=== PATIENT | female | born 1945 | race African-American/Black ===

== ENCOUNTER 2021-02-22 11:00 | Outpatient (REF) | payer MEDICARE, MEDICAID, SELFPAY ==
--- NOTE | ~2021-02-22 | MR_ITS ---
MR LUMBAR SPINE WITHOUT IV CONTRAST CLINICAL INFORMATION: Low back pain. COMPARISON: Lumbar spine radiographs 07/21/2019. TECHNIQUE: MRI of the lumbar spine was obtained using routine sequences without contrast. 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 Discrete 1 degenerative anterolisthesis of L3 on L4. Vertebral body heights are maintained. Severe disc volume loss at L5-S1. Disc desiccation at all lumbar levels. Mild Modic type I endplate signal changes at L3-L4. No additional bone marrow edema. No acute fractures. The conus terminates at the L1-L2 level. Fatty filum terminale. No significant extraspinal soft tissue findings. The L1-L2 and the L2-L3 disc contours are normal. There is no central canal stenosis and there is no foraminal stenosis at these levels. L3-L4: Slight grade 1 anterolisthesis. Severe bilateral facet arthropathy and ligamentum flavum thickening. Bilateral facet joint effusions. Mild central canal stenosis and mild bilateral foraminal encroachment. L4-L5: Diffuse annular disc bulge and mild to moderate bilateral facet arthropathy. No central canal stenosis. No significant foraminal stenosis. 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 - At L3-L4, slight grade 1 degenerative anterolisthesis and multifactorial degenerative changes result in mild central canal stenosis and mild bilateral foraminal encroachment. Bilateral facet joint effusions at this level.
== END 2021-02-22 11:01 | disposition home or self-care (01) ==
LOC: HO.MRI 11:00
PROVIDERS: PCP Internal Medicine; Visit Provider Internal Medicine
DX: M54.5 Low back pain (principal)
CPT/HCPCS: 72148

== ENCOUNTER 2021-11-06 13:26 | Outpatient (REF) | payer OTHER, SELFPAY ==
--- NOTE | ~2021-11-06 | MM_ITS ---
EXAMINATION: MM SCREENING DIGITAL BREAST TOMOSYNTHESIS, BILATERAL CLINICAL INFORMATION: Screening. Asymptomatic. The lifetime risk of breast cancer based on the Tyrer-Cuzick Model is 2%. COMPARISON: Mammography: 12/25/2018, 06/13/2017, 04/24/2016 TECHNIQUE: Digital breast tomosynthesis is performed in both the craniocaudal and mediolateral oblique views along with computer-aided detection (CAD). Synthesized 2D images are generated from the tomosynthesis. Additional left MLO view is provided. FINDINGS: There are scattered areas of fibroglandular density (ACR BI-RADS breast composition Category b). There are no significant masses, abnormal calcifications, or other abnormalities. Parenchymal pattern is similar to prior studies. There is no developing density or architectural abnormality. There are scattered vascular and some isolated punctate calcifications. The axilla and skin contours are unremarkable. MM/MM tomosynthesis screening BI IMPRESSION: No mammographic evidence of malignancy. ASSESSMENT: BI-RADS 1: Negative RECOMMENDATION: Routine annual mammography screening. This patient's information was entered into a reminder system with a target due date for their next mammogram.
== END 2021-11-06 13:27 | disposition home or self-care (01) ==
LOC: HO.MAMMO 13:26
PROVIDERS: PCP Internal Medicine; Visit Provider Internal Medicine
DX: Z12.31 Encounter for screening mammogram for malignant neoplasm of breast (principal)
CPT/HCPCS: 77063; 77067

== ENCOUNTER 2022-01-23 09:44 | Outpatient (REF) | payer OTHER, SELFPAY ==
--- NOTE | ~2022-01-23 | MM_ITS ---
EXAMINATION: BONE DENSITOMETRY CLINICAL INDICATION: Asymptomatic menopausal state. COMPARISON: Previous BD dated 12/22/2018 and baseline BD dated 05/10/2010. TECHNIQUE: Using a [employer] DXA System (software version: 13.1) manufactured by [employer], dual-energy x-ray absorptiometry was performed of the lumbar spine and left hip. The images are of good technical quality. Summary results are attached. FINDINGS: AP SPINE L1-L4: Current: BMD 0.973 g/cm2, Z-score -0.4, T-score -1.7, osteopenia, 2.1% increase from previous, 3.8% increase from baseline (<5% change is not significant). Prior: BMD 0.953 g/cm2. Baseline: BMD 0.937 g/cm2. LEFT FEMUR, NECK: Current: BMD 0.664 g/cm2, Z-score -1.1, T-score -2.7, osteoporosis. Prior: BMD 0.735 g/cm2. Baseline: BMD 0.779 g/cm2. LEFT FEMUR, TOTAL: Current: BMD 0.741 g/cm2, Z-score -0.7, T-score -2.1, osteopenia, 7.3% decrease from previous, 10.6% decrease from baseline (<5% change is not significant). Prior: BMD 0.799 g/cm2. Baseline: BMD 0.829 g/cm2. IDENTIFIED RISK FACTORS: Dementia, low calcium intake. Early menopause, secondary osteoporosis, hysterectomy, left oophorectomy. HISTORY OF FRACTURE: None listed. MEDICATIONS: Calcium supplements or multivitamin, vitamin D. MM/XR DEXA axial skeleton IMPRESSION: 1. DIAGNOSIS: Osteoporosis based on the lowest T-score value of -2.7 in the femoral neck applying World Health Organization criteria. 2. 10-YEAR FRACTURE RISK PREDICTION, FRAX: Major osteoporotic fracture (clinical spine, forearm, hip or shoulder) 9.6%. Hip fracture 3.0%. 3. Treatment Recommendations: NOF guidelines recommend consideration for treatment in postmenopausal women and men age 50 and older presenting with the following: -A hip or vertebral (clinical or morphometric) fracture. -T-score less than or equal to -2.5 at the femoral neck or spine after appropriate evaluation to exclude secondary causes. -Low bone mass at the hip or spine and a 10-year fracture probability by FRAX of greater than or equal to 3% for hip fracture or greater than or equal to 20% for major osteoporotic fracture based on the [place] adapted WHO algorithm. 4. Other Recommendations: All treatment decisions require clinical judgment and consideration of individual patient factors, including patient preferences, comorbidities, previous drug use, risk factors not captured in the FRAX model (e.g. frailty, falls, vitamin D deficiency, increased bone turnover, interval significant decline in bone density) and possible under or overestimation of fracture risk by FRAX. Additional medical evaluation for secondary cause of low bone mineral density may be appropriate. FUTURE SCAN RECOMMENDATION: People with diagnosed cases of osteoporosis or at high risk for fracture should have regular bone mineral density tests. For patients eligible for Medicare, routine testing is allowed once every 2 years. The testing frequency can be increased to one year for patients who have rapidly progressing disease, those who are receiving or discontinuing medical therapy to restore bone mass, or have additional risk factors.
== END 2022-01-23 09:45 | disposition home or self-care (01) ==
LOC: HO.MAMMO 09:44
PROVIDERS: Visit Provider Internal Medicine
DX: Z78.0 Asymptomatic menopausal state (principal); F03.90 Unspecified dementia, unspecified severity, without behavioral disturbance, psychotic disturbance, mood disturbance, and anxiety; E83.51 Hypocalcemia; Z90.710 Acquired absence of both cervix and uterus; Z90.721 Acquired absence of ovaries, unilateral
CPT/HCPCS: 77080

== ENCOUNTER 2023-04-07 17:02 | Emergency (ER) | payer OTHER, SELFPAY ==
--- NOTE | ~2023-04-07 | XR_ITS ---
EXAMINATION: XR RIBS, BILATERAL CLINICAL INFORMATION: Bilateral rib pain, status post fall COMPARISON: None available. TECHNIQUE: 3 views of the bilateral ribs were obtained. FINDINGS: Lungs are clear. No consolidation, pneumothorax, or pleural effusion. The cardiomediastinal silhouette and pulmonary vasculature are normal. Osseous structures are unremarkable. Multiple views of bilateral ribs reveal no visible fracture. There is mild dextroscoliosis of dorsal spine. XR/XR ribs BI min 4V w CXR1V IMPRESSION: 1. Unremarkable chest exam. 2. No visible rib fractures seen. There is mild dextroscoliosis of dorsal spine.
--- NOTE | ~2023-04-07 | CT_ITS ---
EXAMINATION: CT HEAD WITHOUT CONTRAST CLINICAL INFORMATION: Dizziness. Mechanical fall today. COMPARISON: None. TECHNIQUE: Contiguous axial imaging was performed from the skull base to vertex without intravenous administration of contrast. This CT examination was performed using dose optimization techniques as appropriate, variously including the following: *Automated exposure control *Adjustment of mA and/or kV according to patient size (this includes techniques or standardized protocols for targeted exams where dose is matched to indication/reason for exam; i.e. extremities or head) *Use of iterative reconstruction technique DLP: 641 mGy-cm. FINDINGS: There is no intracranial hemorrhage, large infarction, or mass lesion. There is no extra-axial collection. The ventricles are normal in size and configuration without evidence of hydrocephalus. The visualized paranasal sinuses and mastoid air cells are clear. CT/CT head/brain wo IV con IMPRESSION: No acute intracranial abnormality.
[2023-04-07 17:32] VITALS: BP 168/75; PULSE 104; RESP 18; TEMP 36.1; O2SAT 97; BMI 34.5
--- NOTE | 2023-04-07 17:32 | ED.GENADULT ---
HPI - General Adult General Chief complaint: Fall Stated complaint: Fall/Rib pain Time Seen by Provider: 04/07/23 21:54 Source: patient Mode of arrival: ambulatory Limitations: no limitations History of Present Illness HPI narrative: 77-year-old female presents with bilateral lower chest wall pain. Symptoms started earlier today. Patient is walking in the hallway to get her mail when she fell. Was a mechanical fall. She did not hit her head or lose consciousness. There is no prodrome such as chest pain, palpitations, lightheadedness, dizziness. She denied any focal neurologic deficits. Currently her pain level is moderate. Is worse with respiration and movement. The pain does not radiate. She denies any shortness breath, cough or mucus production. The pain does not radiate. There has been no prior treatment. Related Data Allergies Allergy/AdvReac Type Severity Reaction Status Date / Time aspirin [ASA] Allergy Severe SWELLING Verified 04/07/23 17:36 Review of Systems Review of Systems: CONSTITUTIONAL: Denies weight loss, fever and chills. HEENT: Denies changes in vision and hearing. RESPIRATORY: Denies SOB and cough. CV: Denies palpitations + CP. GI: Denies abdominal pain, nausea, vomiting and diarrhea. : Denies dysuria and urinary frequency. MSK: Denies myalgia and joint pain. SKIN: Denies rash and pruritus. NEUROLOGICAL: Denies headache and syncope. PSYCHIATRIC: Denies recent changes in mood. Denies anxiety and depression. All other ROS are negative unless in HPI [facility] Social History Social History Advance Directives: No Advance Directives Information Provided: No Physical Exam ED Vital Signs: Vital Signs - 24 hr 04/07/23 17:32 Temperature 97.0 F Pulse Rate 104 H Respiratory Rate 18 Blood Pressure 168/75 H Pulse Oximetry 97 Oxygen Delivery Method Room Air BMI result Body Mass Index 34.5 GEN: Well developed, no acute distress, alert, oriented HEENT: Normocephalic, atraumatic, normal external ears, nose appears normal, no oropharyngeal edema or exudates Eyes: Normal to appearance Neck: Supple, no lymphadenopathy Respiratory: Talks in complete sentences, no respiratory distress, clear to auscultation bilaterally Cardiovascular: Regular rate and rhythm, no murmurs rubs or gallops Abdomen: Soft, nontender, nondistended, no guarding, no rebound Back: No CVA tenderness Extremities: No clubbing cyanosis or edema Neurologic: No focal neurologic deficits, cranial nerves 2-12 intact, strength is 5/5 bilaterally Skin: No rash Chest wall: Bilateral anterior lower chest wall tenderness to palpation Course Course Course Narrative: This is an RME: Additional HPI, ROS, PE not included below will be deferred to primary provider. This is a [id number], with a hx of dementia, presenting to the ER with complaints of BL rib pain since today. Patient reports that she tripped on large sandals and fell forward 1 hour ago. Denies hitting her head. Denies LOC. She is not on blood thinners. Family reports that she has been dizzy over the last day. TTP over BL anterior ribs. Lungs CTAB. BP elevated at 168/75, pulse 104. No neurologic findings on examination. Plan: Labs, EKG, XR ribs BL, CT head Reevaluation(s) Reevaluation #1: Workup is negative. CT scan of the head reveals no acute traumatic injury. X-rays of the ribs to not reveal any acute traumatic injury. There is no evidence of pulmonary contusion. She is hemodynamically stable. Lungs are clear to auscultation bilaterally. Her lab work was unremarkable. EKG shows no acute ischemic changes. Patient received Tylenol for pain. She will continue this treatment and follow-up with her primary care provider as needed. There is no evidence of significant traumatic injury. Time: 22:12 Medical Decision Making Medical Decision Making [facility] Narrative: 77-year-old female presents with bilateral lower chest wall pain following an accidental fall. She did not hit her head or lose consciousness. She was value aided in triage. Imaging studies were ordered including CT scan of the head, rib films. Examination did not reveal any abdominal tenderness. She does have chest wall tenderness. Lungs are clear to auscultation bilaterally. Differential diagnosis includes contusion, fracture, strain, sprain, doubt hemo thorax or flail chest. Doubt significant acute vascular injury. Will follow up on studies previously ordered. Will provide patient with analgesia. Differential Diagnosis Differential Diagnoses: The differential diagnosis associated with the presentation includes (See above) Admission/Observation Consideration of admission/observation: Escalation of care including admission/observation considered Lab Data [facility] Lab Attestation statement: I reviewed the patient's lab results. 04/07/23 17:57 04/07/23 17:57 Labs: Lab Results 04/07/23 Range/Units 17:57 WBC 7.1 (4.8-10.8) X10*3/uL RBC 4.41 (4.20-5.50) X10*6/uL Hgb 13.0 (12.0-16.0) g/dl Hct 40.6 (37.0-47.0) % MCV 92.1 (80.0-98.0) fL MCH 29.5 (27.0-33.0) pg MCHC 32.0 (31.0-35.0) g/dl RDW 12.9 (11.0-16.0) % Plt Count 267 (160-400) X10*3/uL MPV 10.3 (9.4-12.3) fL Immature Gran % (Auto) 0.6 H (0.0-0.4) % Neut % (Auto) 53.5 (45-73) % Lymph % (Auto) 33.0 (20-40) % [place] % (Auto) 9.4 (2-11) % Eos % (Auto) 3.2 (0-4) % Baso % (Auto) 0.3 (0-2) % Lymph # (Auto) 2.4 (1.2-4.9) X10*3/uL [place] # (Auto) 0.7 (0.1-1.2) X10*3/uL Eos # (Auto) 0.2 (0.0-0.4) X10*3/uL Baso # (Auto) 0.0 (0.0-0.2) X10*3/uL Abs Immat Gran (auto) 0.04 H (0.00-0.03) X10*3/uL Absolute Neuts (auto) 3.8 (2.0-8.3) x10*3/uL Absolute Nucleated RBC 0.000 (0.0-0.012) X10*3/uL Nucleated RBC % (auto) 0.0 (0.0-0.2) /100WBC Sodium 142 (135-145) mmol/L Potassium 3.9 (3.3-5.1) mmol/L Chloride 108 (96-108) mmol/L Carbon Dioxide 26 (22-29) mmol/L Anion Gap 12 (12-20) BUN 13 (9-16) mg/dL Creatinine 0.88 (0.5-1.4) mg/dL Estim Creat Clear Calc 49.6 Estimated GFR > 60 Random Glucose 84 (60-115) mg/dL Calcium 9.3 (8.4-10.2) mg/dL Magnesium 2.2 (1.6-2.6) mg/dL Total Bilirubin 0.3 (0.0-1.0) mg/dL Direct Bilirubin 0.1 (0.0-0.5) mg/dL AST 19 (5-31) U/L ALT 11 (0-31) U/L Alkaline Phosphatase 86 (39-117) U/L Troponin I High Sens < 2.7 (<3.5-17.0) ng/L Total Protein 7.9 (6.5-8.0) g/dL Albumin 3.9 (3.5-5.0) g/dL Urine Color Yellow Urine Appearance Clear Urine pH 7.0 (5.0-9.0) Ur Specific [place] 1.020 (1.005-1.025) Urine Protein Negative (Neg-Trace) mg/dL Urine Glucose (UA) Negative (Negative) mg/dL Urine Ketones Negative (Negative) mg/dL Urine Blood Negative (Negative) Urine Nitrite Negative (Negative) Ur Leukocyte Esterase Negative (Negative) Independent Interpretation I performed an independent interpretation of an: EKG (Normal sinus rhythm heart rate 96, LVH, no acute ST elevations depressions, nonspecific T-wave change noted in lead 3), Plain X-Ray (Ribs: No acute traumatic injury, no pneumothorax, no acute cardiopulmonary disease) and CT Scan (Head: No acute disease) Radiology Impression Discussion of test interpretation with radiology: I have reviewed the radiologist's reading. Radiologist Impression: CT/CT head/brain wo IV con IMPRESSION: No acute intracranial abnormality. Dictated By: JERRI SANDERS MD Signed By: <Electronically signed by JERRI SANDERS MD in [place]> 04/07/231925 XR/XR ribs BI min 4V w CXR1V IMPRESSION: 1. Unremarkable chest exam. 2. No visible rib fractures seen. There is mild dextroscoliosis of dorsal spine. Dictated By: Pedro Young MD Signed By: <Electronically signed by Pedro Young MD in [place]> 04/07/231935 Prescription Management I considered prescription management with: Pain Medication Discharge Plan Discharge Clinical Impression: Accidental fall, Acute chest wall pain Patient Disposition: Home, Self-Care Instructions: Fall Prevention for Older Adults (ED), Chest Wall Pain (ED) Additional Instructions: For pain, tylenol 1000 mg every 6 hours as needed Referrals: Cary Shah MD [Primary Care Provider] - 1 week
--- NOTE | 2023-04-07 17:37 | ECG_ITS ---
Test Reason : DIZZINESS Blood Pressure : / mmHG Vent. Rate : 096 BPM Atrial Rate : 096 BPM P-R Int : 148 ms QRS Dur : 072 ms QT Int : 342 ms P-R-T Axes : 045 -12 030 degrees QTc Int : 432 ms Normal sinus rhythm Minimal voltage criteria for LVH, may be normal variant ( R in aVL ) Borderline ECG When compared with ECG of 19-JUL-2005 12:56, No significant change was found Referred By: Nadege Trammell Electronically Signed By:JUSTINA JIMENEZ
[2023-04-07 18:03] LABS: MANUAL DIFF FLAG NO
[2023-04-07 18:04] LABS: Basophils Percent Auto 0.3 % (0-2); Eosinophils Absolute Auto 0.2 X10*3/uL (0.0-0.4); Eosinophils Percent Auto 3.2 % (0-4); Hematocrit 40.6 % (37.0-47.0); Imm Gran Abs Auto 0.04 X10*3/uL (0.00-0.03); Imm Gran Pct Auto 0.6 % (0.0-0.4); Lymphocytes Absolute Auto 2.4 X10*3/uL (1.2-4.9); Mean Corpuscular Hemoglobin 29.5 pg (27.0-33.0); Mean Corpuscular Volume 92.1 fL (80.0-98.0); Mean Platelet Volume 10.3 fL (9.4-12.3); Monocytes Absolute Auto 0.7 X10*3/uL (0.1-1.2); Monocytes Percent Auto 9.4 % (2-11); Neutrophils Absolute Auto 3.8 x10*3/uL (2.0-8.3); Neutrophils Percent Auto 53.5 % (45-73); Platelet Count 267 X10*3/uL (160-400); Red Blood Count 4.41 X10*6/uL (4.20-5.50); Red Cell Distribution Width 12.9 % (11.0-16.0); White Blood Count 7.1 X10*3/uL (4.8-10.8)
[2023-04-07 18:09] LABS: Appearance Urine Clear; Color Urine Yellow; Glucose Urine UA Negative (Negative); Leukocyte Esterase Urine Negative (Negative); Nitrite Urine Negative (Negative); Urine Blood Negative (Negative); Urine Ketones Negative (Negative); Urine Protein Negative (Neg-Trace)
[2023-04-07 18:18] LABS: Alanine Aminotransferase 11 U/L (0-31); Albumin Level 3.9 g/dL (3.5-5.0); Alkaline Phosphatase 86 U/L (39-117); Anion Gap 12 (12-20); Aspartate Amino Transferase 19 U/L (5-31); Bilirubin Direct 0.1 mg/dL (0.0-0.5); Bilirubin Total 0.3 mg/dL (0.0-1.0); Blood Urea Nitrogen 13 mg/dL (9-16); Calcium 9.3 mg/dL (8.4-10.2); Carbon Dioxide 26 mmol/L (22-29); Chloride 108 mmol/L (96-108); Creatinine Clr Calc Pharmacy 49.6; Estimated Glomerular Filt Rate > 60; Glucose Random 84 mg/dL (60-115); Magnesium 2.2 mg/dL (1.6-2.6); Potassium 3.9 mmol/L (3.3-5.1); Sodium 142 mmol/L (135-145); Total Protein 7.9 g/dL (6.5-8.0)
[2023-04-07 18:34] LABS: Troponin-I High Sensitivity < 2.7 ng/L (<3.5-17.0)
[2023-04-07 22:40] VITALS: BP 172/85; PULSE 88; RESP 18; TEMP 36.6; O2SAT 97
[2023-04-07] MEDS: Acetaminophen 325 MG TABLET 975 MG PO (22:41)
--- NOTE | 2023-04-07 22:42 | PC.NURSE ---
pt medicated per SEP for 01/13 rib pain
== END 2023-04-07 22:55 | disposition home or self-care (01) ==
PROVIDERS: Physician Assistant Medical; Emergency Provider Emergency Medicine; PCP Internal Medicine
DX: S29.011A Strain of muscle and tendon of front wall of thorax, initial encounter (principal); R51.9 Headache, unspecified; R07.89 Other chest pain; R07.81 Pleurodynia; W01.10XA Fall on same level from slipping, tripping and stumbling with subsequent striking against unspecified object, initial encounter; Y93.9 Activity, unspecified; Y92.9 Unspecified place or not applicable; Y99.9 Unspecified external cause status; Z79.899 Other long term (current) drug therapy
CPT/HCPCS: 36415; 70450; 71111; 80048; 80076; 81003; 83735; 84484; 85025; 93005; 99284

== ENCOUNTER 2023-11-26 20:14 | Inpatient (IN) | payer OTHER, SELFPAY ==
--- NOTE | ~2023-11-26 | XR_ITS ---
EXAMINATION: XR CHEST CLINICAL INFORMATION: Cough. COMPARISON: Chest x-ray dated 04/07/2023. TECHNIQUE: AP upright portable view of the chest was obtained. FINDINGS: The cardiomediastinal silhouette is within normal limits in size. Calcification of the aortic arch is seen. Lungs bilaterally are symmetrically expanded. No focal consolidation, effusion or pneumothorax is seen. Mild S-shaped thoracolumbar scoliosis and osteopenia again noted. XR/XR chest 1V IMPRESSION: Low lung volumes. No acute cardiopulmonary process.
[2023-11-26 20:53] VITALS: BP 157/75; PULSE 130; RESP 18; TEMP 38; O2SAT 96; BMI 34.7
--- NOTE | 2023-11-26 20:53 | ECG_ITS ---
Test Reason : DIZZINESS Blood Pressure : / mmHG Vent. Rate : 128 BPM Atrial Rate : 128 BPM P-R Int : 138 ms QRS Dur : 072 ms QT Int : 302 ms P-R-T Axes : 048 -29 043 degrees QTc Int : 440 ms Sinus tachycardia Cannot rule out Anterior infarct , age undetermined Abnormal ECG When compared with ECG of 07-APR-2023 17:51, Minimal criteria for Anterior infarct are now Present Referred By: Zak Cummins Electronically Signed By:ESHA GARDNER MD
--- NOTE | 2023-11-26 20:53 | ED_ITS ---
HPI - General Adult General Chief complaint: General Medical Stated complaint: weakness from waist down, high bp, unable to eat Time Seen by Provider: 11/26/23 22:52 Source: patient and RN notes reviewed Mode of arrival: ambulatory Limitations: no limitations History of Present Illness ED Provider: Nadege Trammell PA-C HPI narrative: This is a 78-year-old [place] Korean-speaking female, with a history of dementia, who presents emergency department, accompanied by her daughter, with complaints of ?not feeling well?, stating that she has had nausea, urinary frequency, and urgency which all started this morning. Patient states that yesterday she was in her usual state of health. She states that she woke up today and felt nausea, urinary frequency, urinary urgency, and felt run down . She denies dysuria or hematuria. She denies any fevers, chills, chest pain, shortness of breath, palpitations, abdominal pain, diarrhea or constipation. Denies cough or congestion. When asked about lower extremity weakness as this is mentioned in the triage note, she states that she just feels ?run down?. She does not feel lower extremity weakness, and she is ambulatory. No other complaints or concerns at this time. MD complaint: Urinary frequency, urgency Onset (ago): hour(s) Pain Consistency: constant Associated symptoms: loss of appetite and nausea/vomiting Treatments prior to arrival: none Related Data Allergies Allergy/AdvReac Type Severity Reaction Status Date / Time aspirin [ASA] Allergy Severe SWELLING Verified 11/26/23 20:57 Review of Systems 2 Review of Systems: Yes all other systems are reviewed and are negative Constitutional: Constitutional: Reports as per [facility] Past Medical History Attestation statement: The following information was validated with the patient. Social History Social History Advance Directives: No Advance Directives Information Provided: No Do you have a plan to hurt others: No Plan Physical Exam ED Vital Signs: Vital Signs - 24 hr 11/26/23 20:53 11/26/23 23:04 11/26/23 23:43 Temperature 100.4 F 99.9 F 99.0 F Pulse Rate 130 H 123 H 110 H Respiratory Rate 18 17 18 Blood Pressure 157/75 H 164/78 H 151/72 H Pulse Oximetry 96 95 94 Oxygen Delivery Method Room Air Room Air Room Air 11/27/23 00:04 11/27/23 01:07 Temperature 99.4 F 98.5 F Pulse Rate 108 H 97 Respiratory Rate 16 16 Blood Pressure 141/67 H 127/65 Pulse Oximetry 94 94 Oxygen Delivery Method Room Air Room Air BMI result Body Mass Index 34.7 Const General: cooperative, comfortable and no acute distress Orientation/consciousness: patient oriented x3 Limitations: no limitations HENMT Head: Yes normal to inspection, Yes normocephalic and Yes atraumatic Ears: hearing grossly normal bilaterally General nose exam: Normal external nose present Face and sinus: Yes normal facial exam Mouth: Normal oral and palatal mucosa present, oropharynx normal and moist mucous membranes Throat: Yes posterior oropharynx normal Eyes General: appearance normal, both eyes and all related structures Eyelids: Yes eyelids normal Conjunctivae: conjunctivae normal Sclerae: sclerae normal Pupils: Equal, round and reactive pupils present EOM: EOMs intact bilaterally Neck Neck: Yes normal visual inspection, Yes full ROM and Yes no lymphadenopathy Lymphatic: no lymphadenopathy noted Chest Chest palpation & inspection: normal inspection of the chest Resp Effort & Inspection: normal respiratory effort and able to speak in complete sentences Auscultation: clear to auscultation bilaterally, no crackles, no rales, no rhonchi and no wheezes Cardio Rate: regular rate Rhythm: regular rhythm Heart sounds: S1 normal heart sound present and S2 normal heart sound present GI Other: Abdomen is soft, nontender, nondistended Inspection: Yes normal to inspection Skin General skin exam: no rashes or lesions noted Trauma: no lacerations or abrasions Wounds: no wounds Neuro General: patient oriented x3 and moves all extremities Cranial nerves: Yes CN's II-XII intact bilaterally and Yes Equal, round and reactive pupils present Cognition (Neuro): normal cognition Gait exam (Neuro): Normal gait present Motor exam (neuro): 5/5 motor strength present throughout and Pronator motor function not present Extrem Other: No pedal edema, no calf tenderness. Strength in lower extremities is 5/5 General: Yes normal to inspection Right upper extremity: normal to inspection Left upper extremity: normal to inspection Right lower extremity: normal to inspection Left lower extremity: normal to inspection Course Course Course Narrative: RME- 78 year old female presents for evaluation of generalized weakness since 10am. No focal weakness or deficits on exam. She complains of abdominal discomfort but denies nausea, vomiting, or diarrhea. Plan for EKG, basic labs, UA. Will defer any potential imaging to primary provider. Reevaluation(s) Reevaluation #1: Patient was seen and evaluated by me at the time listed below, sepsis alert was called as patient has a return lactic acid of 2.5, and urine appears to be infected. Given patient has symptoms of a UTI, this is likely the source. Sepsis alert initiated. IV fluids, Rocephin 1 g IV, and Tylenol was ordered. Time: 23:05 Reevaluation #2: Patient already received her IV fluids, IV antibiotics, 2nd lactic acid still pending. Patient re-evaluated, she is feeling improved after receiving Tylenol, IV fluids, and IV antibiotics. Will await 2nd lactic. Time: 00:38 Reevaluation #3: Lactic acid returns, is 1.3. Will admit to medicine for UTI. Time: 00:58 Medications Administered Discontinued Medications Generic Name Dose Route Start Last Admin Trade Name Freq PRN Reason Stop Dose Admin Acetaminophen 650 mg 11/26/23 23:03 11/26/23 23:20 Acetaminophen 325 Mg Tablet PO 11/26/23 23:04 650 mg ONCE ONE Administration Sodium Chloride 2,340 mls @ 2,340 mls/hr 11/26/23 23:03 11/26/23 23:16 Ns IV 11/27/23 00:02 2,340 mls/hr .Q1H STA Administration Ceftriaxone Sodium 1 gm/ 50 mls @ 100 mls/hr 11/26/23 23:03 11/26/23 23:50 Sodium Chloride IV 11/26/23 23:32 Infused ONCE ONE Infusion Medical Decision Making Medical Decision Making [facility] Narrative: This is a 78-year-old female, with a history of dementia, who presents to the emergency department with complaints of urinary frequency, urgency, and nausea since this morning. On arrival to the emergency room, patient hypertensive at 157/75, pulse 130. She is alert and oriented and appears to be under no acute distress. Lungs are clear to auscultation bilaterally. No peripheral edema. She is speaking in full sentences, and she is fully neurologically intact. Patient was placed in room at 2300, and I saw patient as critical lactic acid was called to the main emergency department and was found to be elevated at 2.5. Upon my initial assessment, patient reporting urinary symptoms as well as feeling run down with a poor appetite/nausea. Labs were already performed and resulted prior to my assessment, patient has leukocytosis at 14.2 with left shift, chemistry within normal limits, troponin negative, lactic acid 2.5. Urine with moderate blood, with 4+ bacteria. Given patient is symptomatic with urine appearing to be infected, urinary tract infection is suspected at this time therefore 30 cc of IV fluids, IV ceftriaxone and antipyretic. Plan: Labs, EKG, chest x-ray, UA, viral swabs, IV fluids, IV antibiotics, antipyretic Differential Diagnosis Differential Diagnoses: The differential diagnosis associated with the presentation includes UTI, pneumonia, viral syndrome, electrolyte derangement, ACS-unlikely Admission/Observation Consideration of admission/observation: Escalation of care including admission/observation considered Patient requiring admission secondary to lactic acidosis and UTI Consult Healthcare Provider Management of the patient was discussed with: Hospitalist Dr. Zavala Lab Data MDM Lab Attestation statement: I reviewed the patient's lab results. Patient with leukocytosis at 14.2, stable H&H, platelet count low at 152, lactic acidosis at 2.5, repeat 1.3, troponin 2.7. Chemistry otherwise unremarkable. 11/26/23 21:32 11/26/23 21:32 Labs: Lab Results 11/26/23 11/26/23 11/26/23 Range/Units 21:22 21:32 22:04 WBC 14.2 H (4.8-10.8) X10*3/uL RBC 4.76 (4.20-5.50) X10*6/uL Hgb 14.1 (12.0-16.0) g/dl Hct 44.2 (37.0-47.0) % MCV 92.9 (80.0-98.0) fL MCH 29.6 (27.0-33.0) pg MCHC 31.9 (31.0-35.0) g/dl RDW 13.1 (11.0-16.0) % Plt Count 152 L D (160-400) X10*3/uL MPV 11.4 (9.4-12.3) fL Immature Gran % (Auto) 0.4 (0.0-0.4) % Neut % (Auto) 83.3 H (45-73) % Lymph % (Auto) 9.6 L (20-40) % [place] % (Auto) 6.4 (2-11) % Eos % (Auto) 0.1 (0-4) % Baso % (Auto) 0.2 (0-2) % Lymph # (Auto) 1.4 (1.2-4.9) X10*3/uL [place] # (Auto) 0.9 (0.1-1.2) X10*3/uL Eos # (Auto) 0.0 (0.0-0.4) X10*3/uL Baso # (Auto) 0.0 (0.0-0.2) X10*3/uL Abs Immat Gran (auto) 0.06 H (0.00-0.03) X10*3/uL Absolute Neuts (auto) 11.8 H (2.0-8.3) x10*3/uL Absolute Nucleated RBC 0.000 (0.0-0.012) X10*3/uL Nucleated RBC % (auto) 0.0 (0.0-0.2) /100WBC PT 12.2 (11.1-13.3) SEC INR 1.0 (0.9-1.1) Sodium 137 (135-145) mmol/L Potassium 3.7 (3.3-5.1) mmol/L Chloride 100 (96-108) mmol/L Carbon Dioxide 24 (22-29) mmol/L Anion Gap 17 (12-20) BUN 12 (9-16) mg/dL Creatinine 0.79 (0.5-1.4) mg/dL Estim Creat Clear Calc 54.6 Estimated GFR > 60 Random Glucose 115 (60-115) mg/dL Lactic Acid 2.5 H* (0.5-2.0) mmol/L Lactic Acid F/U @ 2Hr (0.5-2.0) mmol/L Calcium 9.7 (8.4-10.2) mg/dL Total Bilirubin 0.8 (0.0-1.0) mg/dL AST 25 (5-31) U/L ALT 23 (0-31) U/L Alkaline Phosphatase 94 (39-117) U/L Troponin I High Sens < 2.7 (<3.5-17.0) ng/L Total Protein 8.7 H (6.5-8.0) g/dL Albumin 4.2 (3.5-5.0) g/dL Lipase 23 (8-78) U/L Urine Color Yellow Urine Appearance Turbid Urine pH 6.5 (5.0-9.0) Ur Specific [place] 1.025 (1.005-1.025) Urine Protein Trace (Neg-Trace) mg/dL Urine Glucose (UA) Negative (Negative) mg/dL Urine Ketones Trace (Negative) mg/dL Urine Blood Moderate (2+) H (Negative) Urine Nitrite Negative (Negative) Ur Leukocyte Esterase Negative (Negative) Urine RBC >20 H (0-2) /HPF Urine WBC 11-20 H (0-5) /HPF Ur Squamous Epith Cells 11-20 (0-2) /HPF Urine Bacteria 4+ (None Seen) Hyaline Casts 0-2 (0-2) /LPF Influenza Type A (PCR) NEGATIVE (Negative) Influenza Type B (PCR) NEGATIVE (Negative) RSV RNA Qual (PCR) NEGATIVE (Negative) SARS-CoV-2 RNA (RT-PCR) NEGATIVE (Negative) 11/27/23 Range/Units 00:26 WBC (4.8-10.8) X10*3/uL RBC (4.20-5.50) X10*6/uL Hgb (12.0-16.0) g/dl Hct (37.0-47.0) % MCV (80.0-98.0) fL MCH (27.0-33.0) pg MCHC (31.0-35.0) g/dl RDW (11.0-16.0) % Plt Count (160-400) X10*3/uL MPV (9.4-12.3) fL Immature Gran % (Auto) (0.0-0.4) % Neut % (Auto) (45-73) % Lymph % (Auto) (20-40) % [place] % (Auto) (2-11) % Eos % (Auto) (0-4) % Baso % (Auto) (0-2) % Lymph # (Auto) (1.2-4.9) X10*3/uL [place] # (Auto) (0.1-1.2) X10*3/uL Eos # (Auto) (0.0-0.4) X10*3/uL Baso # (Auto) (0.0-0.2) X10*3/uL Abs Immat Gran (auto) (0.00-0.03) X10*3/uL Absolute Neuts (auto) (2.0-8.3) x10*3/uL Absolute Nucleated RBC (0.0-0.012) X10*3/uL Nucleated RBC % (auto) (0.0-0.2) /100WBC PT (11.1-13.3) SEC INR (0.9-1.1) Sodium (135-145) mmol/L Potassium (3.3-5.1) mmol/L Chloride (96-108) mmol/L Carbon Dioxide (22-29) mmol/L Anion Gap (12-20) BUN (9-16) mg/dL Creatinine (0.5-1.4) mg/dL Estim Creat Clear Calc Estimated GFR Random Glucose (60-115) mg/dL Lactic Acid (0.5-2.0) mmol/L Lactic Acid F/U @ 2Hr 1.3 (0.5-2.0) mmol/L Calcium (8.4-10.2) mg/dL Total Bilirubin (0.0-1.0) mg/dL AST (5-31) U/L ALT (0-31) U/L Alkaline Phosphatase (39-117) U/L Troponin I High Sens (<3.5-17.0) ng/L Total Protein (6.5-8.0) g/dL Albumin (3.5-5.0) g/dL Lipase (8-78) U/L Urine Color Urine Appearance Urine pH (5.0-9.0) Ur Specific [place] (1.005-1.025) Urine Protein (Neg-Trace) mg/dL Urine Glucose (UA) (Negative) mg/dL Urine Ketones (Negative) mg/dL Urine Blood (Negative) Urine Nitrite (Negative) Ur Leukocyte Esterase (Negative) Urine RBC (0-2) /HPF Urine WBC (0-5) /HPF Ur Squamous Epith Cells (0-2) /HPF Urine Bacteria (None Seen) Hyaline Casts (0-2) /LPF Influenza Type A (PCR) (Negative) Influenza Type B (PCR) (Negative) RSV RNA Qual (PCR) (Negative) SARS-CoV-2 RNA (RT-PCR) (Negative) Independent Interpretation I performed an independent interpretation of an: EKG and Plain X-Ray Interpretation: I reviewed the chest x-ray and agree with the radiology report EKG sinus tachycardia at 128 beats per minute, KS interval 138, QTC 440, no ST elevation or depression. Radiology Impression Discussion of test interpretation with radiology: I have reviewed the radiologist's reading. Radiologist Impression: FINDINGS: The cardiomediastinal silhouette is within normal limits in size. Calcification of the aortic arch is seen. Lungs bilaterally are symmetrically expanded. No focal consolidation, effusion or pneumothorax is seen. Mild S-shaped thoracolumbar scoliosis and osteopenia again noted. XR/XR chest 1V IMPRESSION: Low lung volumes. No acute cardiopulmonary process. Dictated By: Iesha Grubbs MD Independent Historian Clinical information obtained from an independent historian. History obtained from or confirmed by: Other (Daughter) Prescription Management I considered prescription management with: Antibiotic Chronic Conditions Patient?s care impacted by: Other (Dementia) Critical Care Time Critical Care Time Critical Care Time: Yes Total Critical Care Time: 45 Attestation: I have personally provided critical care time exclusive of time spent on separately billable procedures. Time includes review of lab data, radiology results, discussion with consultants, and monitoring for potential decompensation. Intervention performed as documented. Discharge Plan Discharge Clinical Impression: Acute UTI Patient Disposition: Admitted As Inpatient Print Language: [place]
[2023-11-26 21:38] LABS: MANUAL DIFF FLAG NO
[2023-11-26 21:41] LABS: Appearance Urine Turbid; Color Urine Yellow; Glucose Urine UA Negative (Negative); Leukocyte Esterase Urine Negative (Negative); Nitrite Urine Negative (Negative); PH 6.5 (5.0-9.0); Specific Gravity - Urine 1.025 (1.005-1.025); UMIC TRIGGER UACC YES; Urine Blood Moderate (2+) (Negative); Urine Ketones Trace mg/dL (Negative); Urine Protein Trace mg/dL (Neg-Trace)
[2023-11-26 21:45] LABS: Prothrombin Time 12.2 SEC (11.1-13.3)
[2023-11-26 21:48] LABS: Bacteria Urine 4+ (None Seen); Hyaline Casts Urine 0-2 /LPF (0-2); RBC Urine >20 /HPF (0-2); UACC Culture Trigger YES
[2023-11-26 21:51] LABS: Basophils Percent Auto 0.2 % (0-2); Eosinophils Percent Auto 0.1 % (0-4); Hematocrit 44.2 % (37.0-47.0); Hemoglobin 14.1 g/dl (12.0-16.0); Imm Gran Abs Auto 0.06 X10*3/uL (0.00-0.03); Imm Gran Pct Auto 0.4 % (0.0-0.4); Lymphocytes Absolute Auto 1.4 X10*3/uL (1.2-4.9); Lymphocytes Percent Auto 9.6 % (20-40); Mean Corpuscular HGB Conc 31.9 g/dl (31.0-35.0); Mean Corpuscular Hemoglobin 29.6 pg (27.0-33.0); Mean Corpuscular Volume 92.9 fL (80.0-98.0); Mean Platelet Volume 11.4 fL (9.4-12.3); Monocytes Absolute Auto 0.9 X10*3/uL (0.1-1.2); Monocytes Percent Auto 6.4 % (2-11); Neutrophils Absolute Auto 11.8 x10*3/uL (2.0-8.3); Neutrophils Percent Auto 83.3 % (45-73); Platelet Count 152 X10*3/uL (160-400); Red Blood Count 4.76 X10*6/uL (4.20-5.50); Red Cell Distribution Width 13.1 % (11.0-16.0); White Blood Count 14.2 X10*3/uL (4.8-10.8)
[2023-11-26 22:00] LABS: Alanine Aminotransferase 23 U/L (0-31); Albumin Level 4.2 g/dL (3.5-5.0); Alkaline Phosphatase 94 U/L (39-117); Anion Gap 17 (12-20); Aspartate Amino Transferase 25 U/L (5-31); Bilirubin Total 0.8 mg/dL (0.0-1.0); Blood Urea Nitrogen 12 mg/dL (9-16); Calcium 9.7 mg/dL (8.4-10.2); Carbon Dioxide 24 mmol/L (22-29); Chloride 100 mmol/L (96-108); Creatinine Clr Calc Pharmacy 54.6; Estimated Glomerular Filt Rate > 60; Glucose Random 115 mg/dL (60-115); Lipase 23 U/L (8-78); Potassium 3.7 mmol/L (3.3-5.1); Sodium 137 mmol/L (135-145); Total Protein 8.7 g/dL (6.5-8.0)
[2023-11-26 22:08] LABS: Troponin-I High Sensitivity < 2.7 ng/L (<3.5-17.0)
[2023-11-26 22:17] LABS: Influenza A PCR NEGATIVE (Negative); Influenza B PCR NEGATIVE (Negative); Resp Syncy Virus RNA Qual PCR NEGATIVE (Negative); SARS COV2 PCR INHOUSE NEGATIVE (Negative)
[2023-11-26 22:49] LABS: Lactic Acid 2.5 mmol/L (0.5-2.0)
[2023-11-26 23:04] VITALS: BP 164/78; PULSE 123; RESP 17; TEMP 37.7; O2SAT 95
[2023-11-26] MEDS: cefTRIAXone sodium 1 GM in 0.9 % Sodium Chloride 50 ML IV (23:19)
[2023-11-26] MEDS: Acetaminophen 325 MG TABLET 650 MG PO (23:20)
[2023-11-26 23:43] VITALS: BP 151/72; PULSE 110; RESP 18; TEMP 37.2; O2SAT 94
[2023-11-27] VITALS (11 sets, daily range): BP systolic 125–158; BP diastolic 58–78; PULSE 97–118; RESP 15–20; TEMP 36.8–37.6; O2SAT 94–99
[2023-11-27 00:08] LABS: Reflex Lactate? Lactic Acid Added
[2023-11-27 00:48] LABS: ~Lactic Acid-LAB USE ONLY 1.3 mmol/L (0.5-2.0)
--- NOTE | 2023-11-27 01:11 | P.HPHOSP_ITS ---
History of Present Illness Date of Service: 11/27/23 Chief Complaint: Fever This is a 78-year-old female with pertinent history of unspecified dementia, hypertension who presents to the emergency department for evaluation of fever and increased urinary frequency. Patient states her symptoms started on the day of presentation. She has been having urinary urgency and increased urinary frequency. Also has been having chills and fever. Also has nausea. No vomiting, chest discomfort, shortness of breath, palpitations, abdominal pain, back pain, changes in bowel habits. Denies history of UTI in the past. Also has associated weakness. History obtained with the help of air conditioning unit tester In the emergency department, patient was found to be septic and urine concerning for UTI. Review of Systems 2 Review of Systems: Yes all other systems are reviewed and are negative Constitutional: Constitutional: Reports chills, Reports fever(s), Reports lethargy, Reports poor appetite and Reports weakness Cardiovascular: Cardiovascular: Reports no additional cardiovascular complaints Respiratory: Respiratory: Reports no additional respiratory complaints Gastrointestinal: Gastrointestinal: Reports no additional gastrointestinal complaints Genitourinary: Genitourinary: Reports urinary urgency Neurologic: Reports weakness [facility] Medical History Hypertension Dementia Social History Alcohol intake: never Smoked in Last 30 Days: No Use of substances other than those prescribed or required for medical reasons: No Advance Directives: No Advance Directives Information Provided: No Do you have a plan to hurt others: No Plan Meds Allergies Allergy/AdvReac Type Severity Reaction Status Date / Time aspirin [ASA] Allergy Severe SWELLING Verified 11/26/23 20:57 Physical Exam 2 Vital Signs and Narrative: Vital Signs: Last Vital Signs Temp 98.5 F 11/27/23 01:07 Pulse 97 11/27/23 01:07 Resp 16 11/27/23 01:07 BP 127/65 11/27/23 01:07 Pulse Ox 94 11/27/23 01:07 O2 Del Method Room Air 11/27/23 01:07 BMI result Body Mass Index 34.7 Middle-aged female lying in bed in no distress Neck supple, no JVD Regular rate and rhythm, S1-S2 heard Regular breath sounds bilaterally, no wheezing or crackles appreciated Abdomen soft nontender, no guarding, no rigidity Patient is awake, alert and oriented to self, place, time and person ; no focal motor deficit Psych: Normal mood No pedal edema Results Labs 11/26/23 21:32 11/26/23 21:32 Labs: Laboratory Results - last 24 hr 11/26/23 11/26/23 11/26/23 21:22 21:32 22:04 MCV 92.9 MCH 29.6 MCHC 31.9 RDW 13.1 Plt Count 152 L D MPV 11.4 Immature Gran % (Auto) 0.4 Neut % (Auto) 83.3 H Lymph % (Auto) 9.6 L [place] % (Auto) 6.4 Eos % (Auto) 0.1 Baso % (Auto) 0.2 Lymph # (Auto) 1.4 [place] # (Auto) 0.9 Eos # (Auto) 0.0 Baso # (Auto) 0.0 Abs Immat Gran (auto) 0.06 H Absolute Neuts (auto) 11.8 H Absolute Nucleated RBC 0.000 Nucleated RBC % (auto) 0.0 PT 12.2 INR 1.0 Anion Gap 17 Estim Creat Clear Calc 54.6 Estimated GFR > 60 Random Glucose 115 Lactic Acid 2.5 H* Lactic Acid F/U @ 2Hr Calcium 9.7 Total Bilirubin 0.8 AST 25 ALT 23 Alkaline Phosphatase 94 Troponin I High Sens < 2.7 Total Protein 8.7 H Albumin 4.2 Lipase 23 Urine Color Yellow Urine Appearance Turbid Urine pH 6.5 Ur Specific [place] 1.025 Urine Protein Trace Urine Glucose (UA) Negative Urine Ketones Trace Urine Blood Moderate (2+) H Urine Nitrite Negative Ur Leukocyte Esterase Negative Urine RBC >20 H Urine WBC 11-20 H Ur Squamous Epith Cells 11-20 Urine Bacteria 4+ Hyaline Casts 0-2 Influenza Type A (PCR) NEGATIVE Influenza Type B (PCR) NEGATIVE RSV RNA Qual (PCR) NEGATIVE SARS-CoV-2 RNA (RT-PCR) NEGATIVE 11/27/23 00:26 MCV MCH MCHC RDW Plt Count MPV Immature Gran % (Auto) Neut % (Auto) Lymph % (Auto) [place] % (Auto) Eos % (Auto) Baso % (Auto) Lymph # (Auto) [place] # (Auto) Eos # (Auto) Baso # (Auto) Abs Immat Gran (auto) Absolute Neuts (auto) Absolute Nucleated RBC Nucleated RBC % (auto) PT INR Anion Gap Estim Creat Clear Calc Estimated GFR Random Glucose Lactic Acid Lactic Acid F/U @ 2Hr 1.3 Calcium Total Bilirubin AST ALT Alkaline Phosphatase Troponin I High Sens Total Protein Albumin Lipase Urine Color Urine Appearance Urine pH Ur Specific [place] Urine Protein Urine Glucose (UA) Urine Ketones Urine Blood Urine Nitrite Ur Leukocyte Esterase Urine RBC Urine WBC Ur Squamous Epith Cells Urine Bacteria Hyaline Casts Influenza Type A (PCR) Influenza Type B (PCR) RSV RNA Qual (PCR) SARS-CoV-2 RNA (RT-PCR) Imaging Radiologist's Impressions: Impressions Chest X-Ray 11/26/23 23:12 IMPRESSION: Low lung volumes. No acute cardiopulmonary process. Assessment and Plan (1) Acute UTI: Status: Acute Plan This is a 78-year-old female with pertinent history of unspecified dementia, hypertension who presents to the emergency department for evaluation of fever and increased urinary frequency. #. Sepsis due to acute UTI: Resuscitated with IV crystalloids. Initiating empiric IV antibiotics. Follow up blood culture and urine culture. Obtain lactic acid #. Thrombocytopenia in the setting of above: Continue to monitor platelet count #. Unspecified dementia, mild: Maintain sleep-wake cycle #. Acute lactic acidosis due to sepsis #. Hypertension: Continue home antihypertensives Med rec pending DVT prophylaxis: Lovenox Full code. Discussed with patient and daughter at bedside Admit as inpatient and will require two night minimum hospital stay for IV antibiotics (as above), which is not possible in a lesser acute setting. Quality Stroke Does the patient have a stroke diagnosis?: No VTE Prior VTE?: No VTE Risk Level:: Medical - moderate - high VTE Device Contraindication: Treatment Not Indicated VTE Drug Contraindication: N/A - Med Ordered
[2023-11-27 06:16] LABS: MANUAL DIFF FLAG NO
[2023-11-27 06:19] LABS: Basophils Percent Auto 0.2 % (0-2); Eosinophils Percent Auto 0.3 % (0-4); Hematocrit 38.1 % (37.0-47.0); Hemoglobin 12.2 g/dl (12.0-16.0); Imm Gran Abs Auto 0.06 X10*3/uL (0.00-0.03); Imm Gran Pct Auto 0.5 % (0.0-0.4); Lymphocytes Absolute Auto 1.8 X10*3/uL (1.2-4.9); Lymphocytes Percent Auto 13.1 % (20-40); Mean Corpuscular Hemoglobin 29.7 pg (27.0-33.0); Mean Corpuscular Volume 92.7 fL (80.0-98.0); Mean Platelet Volume 10.4 fL (9.4-12.3); Monocytes Absolute Auto 1.2 X10*3/uL (0.1-1.2); Monocytes Percent Auto 8.6 % (2-11); Neutrophils Absolute Auto 10.3 x10*3/uL (2.0-8.3); Neutrophils Percent Auto 77.3 % (45-73); Platelet Count 267 X10*3/uL (160-400); Red Blood Count 4.11 X10*6/uL (4.20-5.50); Red Cell Distribution Width 13.1 % (11.0-16.0); White Blood Count 13.3 X10*3/uL (4.8-10.8)
[2023-11-27 06:38] LABS: Anion Gap 14 (12-20); Blood Urea Nitrogen 9 mg/dL (9-16); Calcium 8.6 mg/dL (8.4-10.2); Carbon Dioxide 25 mmol/L (22-29); Chloride 106 mmol/L (96-108); Creatinine Clr Calc Pharmacy 67.4; Estimated Glomerular Filt Rate > 60; Glucose Random 93 mg/dL (60-115); Potassium 3.5 mmol/L (3.3-5.1); Sodium 141 mmol/L (135-145)
--- NOTE | 2023-11-27 08:42 | PHA.MEDREC ---
Pharmacy Consult ? Medication Reconciliation Pharmacy has completed the medication reconciliation. Used an protein scientist to help complete med list. When asked about her donepezil 5mg she last filled 07/18/23 for a 90 day supply; called [facility] pharmacy they confirmed she has not gotten since 07/18; patient along with family in the room confirmed they are still on it. When asked about amlodipine 2.5 mg; on records it shows she has not picked up since 06/23/2023 for a 90 day supply, [facility] pharmacy confirmed she has not picked up since then; family and patient confirmed she is on both amlodipine 2.5 mg and hydrochlorothiazide 12.5 mg for blood pressure.
[2023-11-27] MEDS: 0.9 % Sodium Chloride Flush 3 ML SYRINGE IVFLUSH ×2 (08:52→15:39)
[2023-11-27] MEDS: Enoxaparin Sodium 40 MG/0.4 ML SYRINGE SUBCUT (08:53)
--- NOTE | 2023-11-27 09:25 | PM.EVENT ---
Event Note Date of Service: 11/27/23 Event Note: pt admitted this morning. Seen and examined, med rec completed. Admitted for management of Sepsis d/t UTI. No longe febrile, culture pending. Continue Ceftriaxone and follow cultures. likely dc tomorrow, care discussed with family at bedside. Time Spent With Patient Time: Total time managing care of this patient today ____ minutes.
--- NOTE | 2023-11-27 10:29 | MHC.CM.PN ---
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
[2023-11-27] MEDS: Cholecalciferol (Vitamin D3) 25 MCG TABLET 50 MCG PO (11:25)
[2023-11-27] MEDS: amLODIPine Besylate 2.5 MG TABLET PO (11:25)
[2023-11-27] MEDS: hydroCHLOROthiazide 12.5 MG TABLET PO (11:25)
[2023-11-27] MEDS: Donepezil HCl 5 MG TABLET PO (22:43)
[2023-11-27] MEDS: cefTRIAXone sodium 1 GM in 0.9 % Sodium Chloride 50 ML IV (22:44)
[2023-11-28 00:34] VITALS: BP 127/59; PULSE 104; RESP 16; TEMP 37.1; O2SAT 92
[2023-11-28 04:50] VITALS: BP 130/73; PULSE 103; RESP 16; TEMP 36.9; O2SAT 94
--- NOTE | 2023-11-28 05:14 | MHC.EDTECH ---
This tech took over care of patient at 0400,hourly rounds and vitals completed,call reese in reach
[2023-11-28 07:45] VITALS: BP 141/77; PULSE 94; RESP 14; O2SAT 93
[2023-11-28] MEDS: hydroCHLOROthiazide 12.5 MG TABLET PO (08:05)
[2023-11-28] MEDS: Cholecalciferol (Vitamin D3) 25 MCG TABLET 50 MCG PO (08:05)
[2023-11-28] MEDS: 0.9 % Sodium Chloride Flush 3 ML SYRINGE IVFLUSH (08:06)
[2023-11-28] MEDS: amLODIPine Besylate 2.5 MG TABLET PO (08:06)
[2023-11-28] MEDS: Enoxaparin Sodium 40 MG/0.4 ML SYRINGE SUBCUT (08:06)
[2023-11-28 09:26] LABS: Hematocrit 40.4 % (37.0-47.0); Hemoglobin 13.4 g/dl (12.0-16.0); Mean Corpuscular HGB Conc 33.2 g/dl (31.0-35.0); Mean Corpuscular Hemoglobin 30.1 pg (27.0-33.0); Mean Corpuscular Volume 90.8 fL (80.0-98.0); Mean Platelet Volume 10.4 fL (9.4-12.3); Platelet Count 240 X10*3/uL (160-400); Red Blood Count 4.45 X10*6/uL (4.20-5.50); Red Cell Distribution Width 13.2 % (11.0-16.0); White Blood Count 12.1 X10*3/uL (4.8-10.8)
--- NOTE | 2023-11-28 10:30 | P.DS_ITS ---
DS: Providers Provider Date of Service: 11/28/23 Date of admission: 11/27/23 01:09 Primary care physician: Cary Adame MD DS: Diagnosis Discharge Diagnosis (1) Acute UTI: Status: Acute DS: Summary Hospital Course Hospital Course: admission hpi Chief Complaint: Fever This is a 78-year-old female with pertinent history of unspecified dementia, hypertension who presents to the emergency department for evaluation of fever and increased urinary frequency. Patient states her symptoms started on the day of presentation. She has been having urinary urgency and increased urinary frequency. Also has been having chills and fever. Also has nausea. No vomit ing, chest discomfort, shortness of breath, palpitations, abdominal pain, back pain, changes in bowel habits. Denies history of UTI in the past. Also has associated weakness. History obtained with the help of licensed physical therapist assistant In the emergency department, patient was found to be septic and urine concerning for UTI. hospital course: Ptient presented with fever and work up revealed uti and met sepsis criteria. She was admitted for IV abx with ceftriaxone, cultures thus far negative. Her fevers have resolved. She will be transitioned to oral Ceftin 250 bid for 5 more days. Time Attestation Discharge Coordination Time (in mins): 35 Quality: Safe Use of Opioids Does Pt have an Active Cancer Diagnosis on the Problem List?: No Quality: Stroke Does the patient have a stroke diagnosis?: No Physical Exam Vital Signs: Vital Signs: Last Vital Signs Temp 98.4 F 11/28/23 04:50 Pulse 94 11/28/23 07:45 Resp 14 11/28/23 07:45 BP 141/77 H 11/28/23 07:45 Pulse Ox 93 11/28/23 07:45 O2 Del Method Room Air 11/28/23 07:45 BMI result Body Mass Index 34.7 General: AO X 3, no acute distress Resp: CTA bilateral CVS: S1,S2,RRR GI: +BS, NT, no distention Skin: No rash Neuro: motor grossly intact Psych: appropriate affect DS: Data Data Completed and Pending Labs on day of discharge: Laboratory Results - last 24 hr 11/28/23 09:20 WBC 12.1 H RBC 4.45 Hgb 13.4 Hct 40.4 MCV 90.8 MCH 30.1 MCHC 33.2 RDW 13.2 Plt Count 240 MPV 10.4 Absolute Nucleated RBC 0.000 Nucleated RBC % (auto) 0.0 Preliminary micro results at discharge 11/26/23 22:04 Blood Culture - Preliminary Blood - Venous No growth after 24 hours. 11/26/23 21:31 Blood Culture - Preliminary Blood - Venous No growth after 24 hours. 11/26/23 21:49 Urine Culture - Preliminary Urine clean catch - Urine beauchamp top No growth to date. Discharge Plan Discharge Anticipated Discharge Date/Time: 11/28/23 10:26 Patient Disposition: Home, Self-Care Discharge Diagnosis: Sepsis, UTI Referrals: Cary Shah MD [Primary Care Provider] - 1 Week Discharge Medications: New cefuroxime axetil 250 mg tablet 250 mg PO BID 5 Days Qty: 10 0RF Continued acetaminophen 650 mg Tablet Extended Release 650 mg PO Q8H PRN (Reason: Pain) clotrimazole-betamethasone 1-0.05 % Cream 1 appl TOPICAL BID PRN (Reason: Rash) fluticasone propionate 50 mcg/actuation spray,suspension 1 spray intranasal DAILY hydrochlorothiazide 12.5 mg tablet 12.5 mg PO DAILY donepezil 5 mg tablet 5 mg PO BEDTIME amlodipine 2.5 mg tablet 2.5 mg DAILY diclofenac sodium 1 % gel 2 g TOPICAL BID PRN (Reason: Pain) cholecalciferol (vitamin D3) 50 mcg (2,000 unit) capsule 50 mcg PO DAILY Discharge Orders: Discharge Order (Routine); Ordered 11/28/23 Ordered By: Oc Marti Diet: Advance to usual diet Activity on Discharge: As tolerated Stand Alone Forms: Patient Portal Discharge page Print Language: Slovenian Care Plan Goals: recovery from and treatment of UTI Health Concerns: UIT Plan of Treatment: Take Cefuroxime as recommended and follow up with your Doctor in a week, call for appointment Assessment: see above
--- NOTE | 2023-11-28 11:08 | MHC.CM.PN ---
PT WILL DC HOME TODAY WITH NO SERVICES VIA FAMILY TRANSPORT
[2023-11-28 11:32] VITALS: BP 141/77; PULSE 94; RESP 14; TEMP 36.9; O2SAT 93
== END 2023-11-28 11:16 | disposition home or self-care (01) | DRG 690 ==
LOC: HO.ED 11-27 01:08 → HO.EDOVER 11-27 01:24
PROVIDERS: Physician Assistant; Admitting Provider Student in an Organized Health Care Education/Training Program; Emergency Provider Emergency Medicine; PCP Internal Medicine; Visit Provider Internal Medicine
DX: N39.0 Urinary tract infection, site not specified (principal); E87.21 Acute metabolic acidosis; D69.59 Other secondary thrombocytopenia; I10 Essential (primary) hypertension; F03.A0 Unspecified dementia, mild, without behavioral disturbance, psychotic disturbance, mood disturbance, and anxiety; Z20.822 Contact with and (suspected) exposure to COVID-19; Z79.51 Long term (current) use of inhaled steroids; Z79.899 Other long term (current) drug therapy
CPT/HCPCS: 0241U; 36415; 71045; 80048; 80053; 81001; 83605; 83690; 84484; 85025; 85027; 85610; 87040; 87086; 93005; 99221; 99285; J0696; J1650

== ENCOUNTER → 2023-11-26 20:53 | Outpatient (BNV) | payer OTHER, SELFPAY | PROVIDERS: Admitting Provider Student in an Organized Health Care Education/Training Program; Emergency Provider Emergency Medicine; PCP Internal Medicine; Visit Provider Internal Medicine Cardiovascular Disease | DX: R00.0 Tachycardia, unspecified (principal) | CPT/HCPCS: 93010 ==

== ENCOUNTER → 2023-11-27 01:09 | Outpatient (BNV) | payer OTHER, SELFPAY | PROVIDERS: Admitting Provider Student in an Organized Health Care Education/Training Program; Emergency Provider Emergency Medicine; PCP Internal Medicine; Visit Provider Student in an Organized Health Care Education/Training Program | DX: N39.0 Urinary tract infection, site not specified (principal) | CPT/HCPCS: 99222; 99239; 99499 ==

== ENCOUNTER 2024-02-10 13:20 | Outpatient (AMB) | payer OTHER, SELFPAY ==
--- NOTE | 2024-02-10 13:36 | A.OFFVIS_ITS ---
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,lower ext edema Intake Note: New patient BALLARD and edema in lower extremities Parcel Post Truck Driver Required: Yes Parcel Post Truck Driver Services: Parcel Post Truck Driver Present Parcel Post Truck Driver Name: [facility] Allergies aspirin [ASA] Allergy (Severe, Verified 11/26/23 20:57) SWELLING Medication List - Last Reconciled 02/10/24 by Po Barth MD acetaminophen ER 650 mg PO Q8H PRN amlodipine 2.5 mg DAILY cholecalciferol (vitamin D3) 50 mcg PO DAILY clotrimazole-betamethasone 1-0.05 % 1 appl topical BID PRN diclofenac sodium 1% 2 grams topical BID PRN donepezil 5 mg PO BEDTIME fluticasone propionate 50 mcg/actuation 1 spray intranasal DAILY hydrochlorothiazide 12.5 mg PO DAILY HPI Comments Details: Thank you for referring Cary in cardiology consultation today. History was obtained with help of rotary drill rig operator in the room. Patient said after admission few months ago to the hospital with UTI and infection. She has been fatigued. She complains mostly of exertional fatigue and shortness of breath. Denies any exertional chest pain. She denies any orthopnea, PND, leg edema. Denies any prolonged palpitation irregular heartbeat. She says her blood pressure has been elevated for many years but has been mostly controlled. She denies any history of diabetes, smoking, hyperlipidemia, family history of coronary artery disease. [facility] Medical History Hypertension Dementia Social History Alcohol intake: never Patient Tobacco Use Status: Never used Tobacco service: No Review of Systems Const Denies chills, Denies daytime sleepiness, Denies fatigue, Denies fever(s), Denies frequent falls, Denies poor appetite, Denies snoring, Denies stops breathing during sleep, Denies weakness, Denies weight gain and Denies weight loss Eyes Denies loss of vision ENT Denies dizziness and Denies hearing loss Card Denies chest pain, Denies claudication, Denies leg edema, Denies lightheadedness, Denies palpitations, Denies dyspnea, Denies dyspnea on exertion and Denies orthopnea Resp Denies cough, Denies excessive phlegm production, Denies dyspnea, Denies dyspnea on exertion, Denies snoring and Denies wheezing GI Denies abdominal pain, Denies hematochezia, Denies change in bowel habits, Denies nausea and Denies vomiting Denies urinary frequency and Denies dysuria Musc Denies arthralgias, Denies muscle weakness, Denies numbness and Denies other (frequent falls) Skin/Breast Denies nail changes and Denies rash Neuro Denies Abnormal speech present, Denies dizziness, Denies frequent falls, Denies loss of vision, Denies memory loss, Denies numbness and Denies weakness Psych Denies depression and Denies memory loss Endo Denies fatigue and Denies palpitations Arnoldo/Lymph Reports easy bruising and Reports other (anemia) Aller/Immun Denies wheezing Physical Exam Vital Signs: Last Vital Signs Pulse 91 02/10/24 13:37 BP 146/84 H 02/10/24 13:37 BMI result Body Mass Index 34.3 Const General: cooperative, comfortable, no acute distress, alert and awake Nutritional Appearance: obese Orientation/consciousness: patient oriented x3 Limitations: no limitations HEENT Head: Yes normocephalic and Yes atraumatic Neck Neck: Yes trachea midline, Yes supple and Yes no JVD Resp Effort & Inspection: decreased respiratory effort Auscultation: clear to auscultation bilaterally, no crackles, no rales and no wheezes Cardio Jugular venous distension: no JVD Palpation: normal PMI Rate: regular rate Rhythm: regular rhythm Heart sounds: S1 normal heart sound present, S2 normal heart sound present, no click, no gallops, no murmurs and no rubs Peripheral pulses: Peripheral pulses 2+ throughout GI Auscultation: normal bowel sounds Skin General skin exam: no rashes or lesions noted Neuro General: patient oriented x3 and no focal motor deficits Speech: No Abnormal speech present Extrem General: Yes no clubbing, cyanosis or edema Psych Appearance: grossly normal Office Procedures EKG Details: EKG shows normal sinus rhythm with voltage criteria for LVH with poor R-wave progression most likely due to lead placement 58406-[id number], Complete Assessment & Plan Assessment & Plan (1) Exertional dyspnea: Code(s): R06.09 - Other forms of dyspnea Plan: Exertional shortness of breath in this elderly woman although history is somewhat limited. Could be related to deconditioning as well as weight although structural heart issues need to be ruled out. Will suggest her to have a vasodilating myocardial perfusion imaging as well as echocardiogram to evaluate for structural heart issues including ruling out myocardial ischemia as well as LV systolic/diastolic dysfunction. These tests will be scheduled in near future. Further treatment based on the findings. Currently her risk factors of hypertension well optimized on current medical therapy. Advised to continue the same. Advised to participate in aggressive weight loss program. Also advised to participate in regular physical activity. Will follow up in the clinic in 6 weeks time, sooner p.r.n.. Thank you for allowing me to partake in his care Orders: Orders CA echo transthoracic complete Today R06.09 - Other forms of dyspnea CA lexiscan stress w blair Today R06.09 - Other forms of dyspnea Medications: Discontinued cefuroxime axetil Discontinued Reason: Patient Completed Course 250 mg PO BID 5 days 10 tabs 0RF Coding Level of Care Code New Pt Level 4 (77592) Diagnoses Exertional dyspnea R06.09 CPT Codes EKG - CPT: 35803-[id number], Complete ([id number])
[2024-02-10 13:37] VITALS: BP 146/84; PULSE 91; BMI 34.3
== END 2024-02-10 14:05 | disposition home or self-care (01) ==
PROVIDERS: PCP Internal Medicine; Visit Provider Internal Medicine Cardiovascular Disease
DX: R06.09 Other forms of dyspnea (principal)
CPT/HCPCS: 93010; 99213

== ENCOUNTER → 2024-02-10 13:20 | Outpatient (BNVA) | payer OTHER, SELFPAY | PROVIDERS: PCP Internal Medicine; Visit Provider Internal Medicine Cardiovascular Disease | DX: R06.09 Other forms of dyspnea (principal) | CPT/HCPCS: 93005; 99212 ==

== ENCOUNTER → 2024-04-06 08:43 | Outpatient (REF) | payer OTHER, SELFPAY ==
--- NOTE | 2024-04-06 08:46 | CA_ITS ---
Transthoracic Echocardiogram Patient (Last, First, Middle): Cary Noland E Gender: Female Date of : 1945 Age: 78 Procedure Date: 04/06/2024 Procedure Type: Transthoracic Echocardiogram Location: OP Height: 149.86 cm Weight: 72.58 kg BSA: 1.68 m2 Heart Rate: bpm BP: 124 / 60 mmHg Welder Fitter Helper: Referring MD: Po Barth MD Symptoms: R06.09 - Other forms of dyspnea Study Quality: Good ECG Rhythm: Sinus Conclusions: - The left ventricular systolic function is normal. The calculated ejection fraction is 64% by biplane method. - No obvious valvular pathology seen on this study. - Small plaque is seen in the sino tubular ridge. Findings Left Ventricle Normal left ventricular cavity size. The left ventricular systolic function is normal. The calculated ejection fraction is 64% by biplane method. There is no evidence of regional wall motion abnormalities. Diastolic function is normal for age. There is mild septal asymmetric hypertrophy. Right Ventricle Normal right ventricular cavity size and systolic function. Atria Both atria are normal in size. Aortic Valve There is a normal trileaflet aortic valve. There is no aortic valve stenosis. There is no aortic valve regurgitation. Mitral Valve The mitral valve appears normal. There is no mitral valve regurgitation. There is no mitral valve stenosis. Pulmonic Valve The pulmonic valve is likely normal. Tricuspid Valve There is trace tricuspid valve regurgitation. There is no evidence of pulmonary hypertension. Great Vessels The asc aorta is normal in size. Small plaque is seen in the sino tubular ridge. Venous The inferior vena cava is normal in size and collapses greater than 50% with inspiration. Pericardium/Pleural There is no evidence of pericardial effusion. Prior Study Comparison No prior study available for comparison. Recommendations, Care & Conclusions No obvious valvular pathology seen on this study. Measurements 2D Linear Measurements IVSd: 1.07 0.6-0.9/0.6-1.0 cm LVIDd: 3.35 3.9-5.3/4.2-5.9 cm LVIDd Index: 1.99 2.4-3.2/2.2-3.1 cm/m2 LVIDs: 2.17 2.0-3.6 cm LVPWd: 1.01 0.7-1.1 cm Ao Root: 2.90 2.1-3.5 cm LA Diam: 3.30 2.7-3.8/3.0-4.0 cm LAIDs Index: 1.96 1.5-2.3 cm/m2 LV Mass: 127.41 67-162/88-224 g LV Mass Index: 75.84 43-95/49-115 g/m2 LVOT Diam: 2.00 3.0+(-)1.3 cm 2D Systolic Function EF 4C: 65.60 >55% EF 2C: 65.10 >55% EF BiP: 63.90 >55% Mitral Valve MV Pk E: 0.82 MV PK A: 1.12 MV Decel Time: 170.00 E/A: 0.70 E'Lateral: 7.94 E'Medial: 5.55 E/E' Med: 14.80 E/E' Lat: 10.40 PHT: 50.00 MVA PHT: 4.40 Decel [place]: 4.84 Aortic Valve AoV Pk [place]: 1.38 AoV Mn [place]: 0.89 AoV VTI: 0.30 AoV Pk Grad: 8.00 Aov Mn Grad: 4.00 SHELLI Cont.VTI: 2.23 LVOT LVOT Pk [place]: 1.00 LVOT Mn [place]: 0.60 LVOT VTI: 0.21 LVOT Pk Grad: 4.00 LVOT Mn Grad: 2.00 LVOT Diam: 2.00 LVOT Area: 3.14 Diastolic Function MV Pk E: 0.82 MV Pk A: 1.12 E/A: 0.70 E'Medial: 5.55 E/E' Med: 14.80 E' Laterial: 7.94 E/E' Lat: 10.40 Right Ventricle TAPSE (mm): 21.00 TVS' [place]: 12.00 Tricuspid Valve TR Pk [place]: 1.91 TR Pk Grad: 15.00 RA Press: 3.00 RVSP: 18.00 Great Vessels Aorta Ao Root-2D: 2.90 2.0-3.7 cm Ao Asc: 2.60 2.1-3.4 cm Pulmonary Valve PV Pk [place]: 0.87 Peak PV Grad: 3.00 Updated in Other Vendor System with Status of Final Harvey Tang MD electronically signed on 04/06/2024 5:15:10 PM with status of Final
== END ==
LOC: HO.CARD 08:43
PROVIDERS: PCP Internal Medicine; Visit Provider Internal Medicine Cardiovascular Disease
DX: R06.09 Other forms of dyspnea (principal)
CPT/HCPCS: 93306

== ENCOUNTER → 2024-04-06 08:46 | Outpatient (BNV) | payer OTHER, SELFPAY | PROVIDERS: PCP Internal Medicine; Visit Provider Internal Medicine | DX: I42.2 Other hypertrophic cardiomyopathy (principal); R06.02 Shortness of breath | CPT/HCPCS: 93306 ==

== ENCOUNTER → 2024-04-15 08:22 | Outpatient (REF) | payer OTHER, SELFPAY ==
--- NOTE | ~2024-04-15 | NM_ITS ---
Lexiscan Myocardial perfusion study Indication: Exertional shortness of breath to evaluate for myocardial ischemia Technique: The patient was brought in for a Lexiscan perfusion study on 04/15/2024 and was injected 0.4 mg of Lexiscan intravenously. Within a minute of this injection 25 mCi of sestamibi was given intravenously. Images were obtained using the SPECT gamma camera interlaced with the gating device. Images were obtained in supine position. Resting perfusion study was performed on 04/20/2024. Patient was administered 25 mCi of sestamibi intravenously at rest. Images were then obtained in supine position. Images obtained without without CT attenuation. Total DLP 109 mGy-cm. Images were processed with the software and compared side to side in short axis, horizontal long axis and vertical long axis views. Findings: The stress perfusion study showed non attenuated images show some thinning of the anterior wall of the LV myocardium. Remainder of the LV myocardium is normally perfused. Attenuated corrected images show minimal thinning of the apex of the myocardium otherwise normal myocardial perfusion. The gated study shows normal LV systolic function with calculated LVEF of greater than 70%. LV cavity is normal in size. The gated study shows normal systolic wall thickening and contraction of segments. Resting study shows no change in perfusion pattern compared to stress perfusion study. Gating at rest reveals normal systolic wall motion with ejection fraction at greater than 70%. The findings are consistent with normal myocardial perfusion. NM/NM blair perf SPECT rest & str Impression: 1. Myocardial perfusion imaging study shows normal myocardial perfusion 2. Gated LVEF is greater than 70% 3. Transient ischemic dilatation not present Nondiagnostic changes on EKG. Electronically signed by: Po Barth MD 04/20/2024 04:20 PM EDT
--- NOTE | 2024-04-15 08:26 | CA_ITS ---
Acquisition Time: 2024-04-15 08:53:25 Total Exercise Time: 00:02:00 Test Indications: Dyspnea LEG EDEMA Medications: HCTZ AMLODIPINE Protocol: LEXISCAN Max HR: 131 BPM 90% of Pred: 144 BPM Max BP: 138/074 mmHG Max Work Load: 1.0 METS Pharmacological stress test with Lexiscan injection, while sitting and kicking her legs, without anginal symptoms, without arrythmia, with normotensive response to injection, with nondiagnostic EKG for ischemia. In recovery she was treated with Aminophylline 75mg IVP to reverse Lexiscan. Nuclear images pending. Test reviewed with Dr Barth Referred By: Po Barth Overread By: CINDI CEDENO
== END ==
LOC: HO.CARD 08:22
PROVIDERS: PCP Internal Medicine; Visit Provider Internal Medicine Cardiovascular Disease
DX: R06.09 Other forms of dyspnea (principal)
CPT/HCPCS: 78452; 93017; A9500; J0280; J2785

== ENCOUNTER → 2024-04-15 08:26 | Outpatient (BNV) | payer OTHER, SELFPAY | PROVIDERS: PCP Internal Medicine; Visit Provider Nurse Practitioner Family | DX: R06.02 Shortness of breath (principal) | CPT/HCPCS: 78452; 93016; 93018 ==

== ENCOUNTER 2024-10-19 08:42 | Outpatient (REF) | payer OTHER, SELFPAY ==
--- OUTSIDE RECORDS SUMMARY | 2024-10-19 09:07 | XMS_ITS | Encounter Summary ---
Author Organization [employer] Address [address] [facility] [address] [place] [address] Care Team Providers Care Video Game Creator Name Role Phone Cary Shah MD Primary Care Provide r Reason for Visit * Reason Onset Date Comments Appointment Request 08/15/2023 Encounter Details Date Type Department Care Team ([facility] st Contact Info) Description 08/15/2023 Telephone [facility] [address] [place] [address] Cary Shah MD [address] [place] [address] Appointment Request Social History Tobacco Use Types Packs/Day Years Used Date Smoking Tobacco: Never Passive Smoke Exposure: Never Smokeless Tobacco: Never Alcohol Use Standard Drinks/Week Comments Never 0 (1 standard drink = 0.6 oz pur e alcohol) Depression Answer Date Recorded Patient Health Questionnaire-9 Score 0 10/08/2022 Housing Stability Answer Date Recorded What is your housing situation today? I have cornelia felipe 04/23/[address] you li ve. Do you have problems with any of the following? None of the above 04/23/2023 Food Insecurity Answer Date Recorded Within the past 12 months, y ou worried that your food would run out before you got money to buy more: Never True 04/23/2023 Within the past 12 months,th e food you bought just didn't last and you didn't have enough money to get more: Never True Transportation Answer Date Recorded In the past 12 months, has l ack of transportation kept you from medical appts, meetings, work or from getting things needed for daily living? No 04/23/2023 Utilities Answer Date Recorded In the past 12 months, has t he electric, gas, oil or water company threatened to shut off services in your home? No 04/23/2023 Depression Answer Date Recorded Patient Health Questionnaire-2 Score 0 10/08/2022 Comments Unknown Sex and Gender Information Value Date Recorded Sex Assigned at Female 05/06/2022 10:14 AM EDT Legal Sex Female 10:14 AM EDT Gender Identity Female 05/06/2022 10:14 AM EDT Sexual Orientation Straight 05/06/2022 10 :14 AM EDT documented as of this encounter Miscellaneous Notes * Telephone Encounter - Devon Bishop - 08/15/2023 11:10 AM EST Tc from patients daughter calling to cancel and reschedule appt for 08/15 documented in this encounter Plan of Treatment Upcoming Encounters Date Type Department Care Team (Late st Contact Info) Description 12/15/2024 10:15 AM EDT Office Visit [facility] [address] [place] [address] Cary Shah MD [address] [place] [address] documented as of this encounter Visit Diagnoses Not on filedocumented in this encounter Additional Health Concerns Assessment Noted Time PHQ-9 Depression Total Score: 0 10/09/19 23 10:23 AM EDT documented as of this encounter Care Teams Video Game Creator Relationship Specialty Start Date End Date Cary Shah MD [address] [place] [address] PCP - General Family Medicine 08/04/20 documented as of this encounter
--- OUTSIDE RECORDS SUMMARY | 2024-10-19 09:07 | XMS_ITS | Encounter Summary ---
Author Organization [employer] Address [address] [place] [address] [address] [place] [address] Care Team Providers Care Riveter Automobile Brakes Name Role Phone Cary Shah MD Primary Care Provide r Reason for Visit * Reason Onset Date Comments Med Refill 11/28/2022 cholecalciferol (Vitamin D-3) 50 MCG (1999) capsule Encounter Details Date Type Department Care Team ([facility] st Contact Info) Description 11/28/2022 Telephone [facility] [address] [place] [address] Cary Shah MD [address] [place] [address] Med Refill (cholecalciferol (Vitamin D-3) 50 MCG (1999) capsule//) Social History Tobacco Use Types Packs/Day Years Used Date Smoking Tobacco: Never Passive Smoke Exposure: Never Smokeless Tobacco: Never Alcohol Use Standard Drinks/Week Comments Never 0 (1 standard drink = 0.6 oz pur e alcohol) Depression Answer Date Recorded Patient Health Questionnaire-9 Score 0 10/08/2022 Depression Answer Date Recorded Patient Health Questionnaire-2 Score 0 10/08/2022 Comments Unknown Sex and Gender Information Value Date Recorded Sex Assigned at Female 05/06/2022 10:14 AM EDT Legal Sex Female 10:14 AM EDT Gender Identity Female 05/06/2022 10:14 AM EDT Sexual Orientation Straight 05/06/2022 10 :14 AM EDT documented as of this encounter Miscellaneous Notes * Telephone Encounter - Kellee Jose LPN - 11/28/2022 2:21 PM EDT Medication was sent to [id number] on 10/08/22 90 day supply with 1 refill. * Telephone Encounter - Tahmina Juárez - 11/28/2022 2:15 PM EDT Tc from patient requesting a med refill on medication cholecalciferol (Vitamin D-3) 50 MCG (1999) capsule. PCP Dr. Man documented in this encounter Plan of Treatment Upcoming Encounters Date Type Department Care Team (Late st Contact Info) Description 12/15/2024 10:15 AM EDT Office Visit [facility] [address] [place] [address] [phone] Cary Shah MD [address] [place] [address] [phone] documented as of this encounter Visit Diagnoses Not on filedocumented in this encounter Additional Health Concerns Assessment Noted Time PHQ-9 Depression Total Score: 0 10/09/19 23 10:23 AM EDT documented as of this encounter Care Teams [employer]eter [employer] Brakes Relationship Specialty Start Date End Date Cary Shah MD [address] [place] [address] [phone] PCP - General Family Medicine 08/04/20 documented as of this encounter
--- OUTSIDE RECORDS SUMMARY | 2024-10-19 09:07 | XMS_ITS ---
Author Name Tushar DIRECTOR OF FIELD COORDINATION,JACK SPINNER,FN P,MEDICAL CODER, Lisa Address [address] [place] [id number] Phone [phone] Organization [facility] Care Team Providers Care Editor Map Name Role Phone Lisa Finley Unavailable [phone] Unavailable Unavailable Unavailable Unavailable Unavailable [facility] Unavailable [phone] Reason for Referral Not Available Allergies, adverse reactions, alerts Allergen Type Reaction Severity Status Onset Date Aspirin Allergy to substance (disorder) rash Moderate Active N/A History of medication use Medication Class Instructions Start Date End Date Fluticasone Propionate 50 MCG/ACT Suspension SPRAY 2 SPRAYS INTO EACH NOSTRIL TODOS LOS D 2021-11-05 No Data Available Donepezil 5 mg Tab TOME CHAS TABLETA TOD OS LOS D 2021-08-13 No Data Available amLODIPine Besylate 2.5 mg Tab TOME CHAS TABLETA TODOS LOS D 2021-07-04 No Data Available VITAMIN D3 50 MCG (2,000 UNIT) TOME CHAS C PSULA TODOS LOS D 2021-04-02 No Data Available Alendronate Sodium 70 mg Tab TAKE 1 TAB POR V A ORAL ONCE A WEEK IN THE MORNING AT LEAST 30 MIN BEFORE 1ST FOOD/DRINK/MED OF DAY 2022-02-14 No Data Available Acetaminophen ER 650 mg Tab ER PLEASE SE E ATTACHED FOR DETAILED DIRECTIONS 2023-01-08 No Data Available Cyclobenzaprine 5 mg Tab TOME CHAS TABLET A RAFA VECES AL D A POR 10 D 2023-01-08 No Data Available Diclofenac Sodium 1 % Gel PLEASE SEE ATT ACHED FOR DETAILED DIRECTIONS 2023-01-08 No Data Available Vitamin D3 50 MCG (2000 UT) Cap TOME 1 C PSULA (50 MCG) POR V A ORAL EN LA KODY TYESHA 2022-10-08 No Data Available Clindamycin 300 mg Cap TOME CHAS C PSULA RAFA VECES AL D A HASTA QUE SE TERMINE 2023-01-17 No Data Available Clotrimazole-Betamethasone 1-0.05 % Crm APLIQUE AL ALIZE AFECTADA DOS VECES AL D A POR 28 JIMÉNEZ 2023-11-13 No Data Available hydroCHLOROthiazide 12.5 mg Tab TAKE 1 T ABLET (12.5 MG) BY MOUTH ONCE PER DAY. 2023-11-13 No Data Available Cefuroxime Axetil 250 mg Tab TOME CHAS TA BLETA POR V A ORAL DOS VECES AL D A POR 5 D 2023-11-28 No Data Available Tylenol Extra Strength 500 m g Tab 2 tablet orally BID PRN pain 2024-07-14 No Data Available Problem List Problem Status Onset Date Resolved Date Osteoporosis Active 2022-05-01 N/A Osteoarthritis Active 2023-02-14 N/A Other problems related to [facility] facilities and other health care Active 2023-09-30 N/A Urinary tract infection Inactive 2023-12-04 N/A Dementia without behavioral disturbance Active 2 N/A Dental Surgery Active 2024-07-14 N/A HTN (hypertension) Active 2022-05-01 N/A Bilateral knee pain Active 2024-07-14 N/A Encounters Encounters Type Facility Date of Service Diagnosis/Co mplaint Pain Assessment - NO pain present (1126F) [facility] [place] Pain Assessment - NO pain present (1126F) [facility] [place] Pain Assessment - NO pain present (1126F) [facility] [place] Pain Assessment - NO pain present (1126F) [facility] [place] Pain Assessment - NO pain present (1126F) [facility] [place] Pain Assessment - NO pain present (1126F) [facility] [place] Pain Assessment - NO pain present (1126F) [facility] [place] Unspecified dementia without behavioral disturbanceEssential (primary) hypertensionAge-related osteoporosis without current pathological fracture Pain Assessment - NO pain present (1126F) [facility] [place] Pain Assessment - NO pain present (1126F) [facility] [place] Estab. patient 30-39min; chronic exacerbation, 2 stable chronic or 1 acute illness add add modifier 95 for video, (do not use for phone, instead use 89057-89) [facility] [place] 02[place]14/2023 Unspecified dementia, mild, without behavioral disturbance, psychotic disturbance, mood disturbance, and anxietyEssential (primary) hypertensionAge-related osteoporosis without current pathological fractureUnspecified osteoarthritis, unspecified site Estab. patient 30-39min; chronic exacerbation, 2 stable chronic or 1 acute illness add add modifier 95 for video, (do not use for phone, instead use 59116-75) [facility] [place] Estab. patient 30-39min; chronic exacerbation, 2 stable chronic or 1 acute illness add add modifier 95 for video, (do not use for phone, instead use 71337-21) [facility] [place] Estab. patient 30-39min; chronic exacerbation, 2 stable chronic or 1 acute illness add add modifier 95 for video, (do not use for phone, instead use 05465-05) [facility] [place] Estab. patient 30-39min; chronic exacerbation, 2 stable chronic or 1 acute illness add add modifier 95 for video, (do not use for phone, instead use 90841-40) [facility] [place] Estab. patient 30-39min; chronic exacerbation, 2 stable chronic or 1 acute illness add add modifier 95 for video, (do not use for phone, instead use 05610-92) [facility] [place] Estab. patient 30-39min; chronic exacerbation, 2 stable chronic or 1 acute illness add add modifier 95 for video, (do not use for phone, instead use 76666-62) [facility] [place] Estab. patient 30-39min; chronic exacerbation, 2 stable chronic or 1 acute illness add add modifier 95 for video, (do not use for phone, instead use 59952-79) [facility] [place] Estab. patient 30-39min; chronic exacerbation, 2 stable chronic or 1 acute illness add add modifier 95 for video, (do not use for phone, instead use 87460-71) [facility] [place] Estab. patient 30-39min; chronic exacerbation, 2 stable chronic or 1 acute illness add add modifier 95 for video, (do not use for phone, instead use 77293-67) [facility] [place] Estab. patient 30-39min; chronic exacerbation, 2 stable chronic or 1 acute illness add add modifier 95 for video, (do not use for phone, instead use 38102-97) [facility] [place]2023 Unspecified dementia without behavioral disturbanceEssential (primary) hypertensionAge-related osteoporosis without current pathological fractureOther problems related to medical facilities and other health care Estab. patient 30-39min; chronic exacerbation, 2 stable chronic or 1 acute illness add add modifier 95 for video, (do not use for phone, instead use 27497-88) [facility] [place] Estab. patient 30-39min; chronic exacerbation, 2 stable chronic or 1 acute illness add add modifier 95 for video, (do not use for phone, instead use 33811-88) [facility] [place] Estab. patient 30-39min; chronic exacerbation, 2 stable chronic or 1 acute illness add add modifier 95 for video, (do not use for phone, instead use 82506-24) [facility] [place] Estab. patient 30-39min; chronic exacerbation, 2 stable chronic or 1 acute illness add add modifier 95 for video, (do not use for phone, instead use 07221-65) [facility] [place] Estab. patient 30-39min; chronic exacerbation, 2 stable chronic or 1 acute illness add add modifier 95 for video, (do not use for phone, instead use 17470-00) [facility] [place] Estab. patient 30-39min; chronic exacerbation, 2 stable chronic or 1 acute illness add add modifier 95 for video, (do not use for phone, instead use 49843-24) [facility] [place]20[place] Estab. patient 30-39min; chronic exacerbation, 2 stable chronic or 1 acute illness add add modifier 95 for video, (do not use for phone, instead use 71630-76) [facility] [place]20[place] Estab. patient 30-39min; chronic exacerbation, 2 stable chronic or 1 acute illness add add modifier 95 for video, (do not use for phone, instead use 66300-38) [facility] [place]/20[place] Estab. patient 30-39min; chronic exacerbation, 2 stable chronic or 1 acute illness add add modifier 95 for video, (do not use for phone, instead use 04663-73) [facility] [place] 09[place]/2023 No Data Available [facility] [place]04/2023 Urinary tract infection, sit e not specifiedOther problems related to medical facilities and other health care No Data Available [facility] [place] 12/04/2023 RN, CN or CP time with patient by phone; use with 1111F, BP, A1c or other CPTII codes [facility] ([place] 12/02/2023 Encounter for other specifie d aftercare RN, CN or CP time with patient by phone; use with 1111F, BP, A1c or other CPTII codes [facility] [place] 12/02/2023 Unlisted special service; to be used for medical record reviews and reporting CPTII codes (1111F, etc) [facility] ([place] 04/27/2024 Other specified counseling Unlisted special service; to be used for medical record reviews and reporting CPTII codes (1111F, etc) [facility] [place] Unlisted special service; to be used for medical record reviews and reporting CPTII codes (1111F, etc) [facility] [place] 04[place] Estab. patient 30-39min; chronic exacerbation, 2 stable chronic or 1 acute illness add add modifier 95 for video, (do not use for phone, instead use 61062-26) [facility] [place] 07[place]/2024 Unspecified dementia without behavioral disturbanceEssential (primary) hypertensionAge-related osteoporosis without current pathological fractureUnspecified osteoarthritis, unspecified siteOther problems related to medical facilities and other health careEncntr for proc for purpose oth than remedy hlth state, unspPain in right kneePain in left knee Estab. patient 30-39min; chronic exacerbation, 2 stable chronic or 1 acute illness add add modifier 95 for video, (do not use for phone, instead use 32355-57) [facility] [place] Estab. patient 30-39min; chronic exacerbation, 2 stable chronic or 1 acute illness add add modifier 95 for video, (do not use for phone, instead use 37190-94) [facility] [place] 07[place]/20[place] Estab. patient 30-39min; chronic exacerbation, 2 stable chronic or 1 acute illness add add modifier 95 for video, (do not use for phone, instead use 01884-60) [facility] [place] 07[place]14/20[place] Estab. patient 30-39min; chronic exacerbation, 2 stable chronic or 1 acute illness add add modifier 95 for video, (do not use for phone, instead use 67062-57) [facility] [place] 07[place] Estab. patient 30-39min; chronic exacerbation, 2 stable chronic or 1 acute illness add add modifier 95 for video, (do not use for phone, instead use 14770-35) [facility] [place] 07[place] Estab. patient 30-39min; chronic exacerbation, 2 stable chronic or 1 acute illness add add modifier 95 for video, (do not use for phone, instead use 83885-45) [facility] [place] 07[place] Estab. patient 30-39min; chronic exacerbation, 2 stable chronic or 1 acute illness add add modifier 95 for video, (do not use for phone, instead use 26638-87) [facility] [place] 07[place] Estab. patient 30-39min; chronic exacerbation, 2 stable chronic or 1 acute illness add add modifier 95 for video, (do not use for phone, instead use 59394-01) [facility], ([place] 07/14/2024 Vital Signs Date of Collection Vitals 2022-05-01 13:32:51 Height - 149.86 cmWe ight - 74.39 kgBody Mass Index (BMI) - 33.12 kg/m2BP Diastolic - 81.0 mm[Hg]BP Systolic - 138.0 mm[Hg] 2023-02-14 12:27:35 Height - 149.86 cmWe ight - 76.66 kgBody Mass Index (BMI) - 34.13 kg/m2BP Diastolic - 80.0 mm[Hg]BP Systolic - 148.0 mm[Hg]Pain Scale - 0.0 {score} 2023-09-30 07:39:39 Height - 147.32 cmWe ight - 76.2 kgBody Mass Index (BMI) - 35.11 kg/m2BP Diastolic - 80.0 mm[Hg]BP Systolic - 140.0 mm[Hg] 2024-07-14 13:25:27 Height - 149.86 cmWe ight - 72.58 kgBody Mass Index (BMI) - 32.32 kg/m2BP Diastolic - 78.0 mm[Hg]BP Systolic - 148.0 mm[Hg] Social History Social History Social History Observation Description Effec tive Time Current Smoking Status Never smoker 2024-10-05 5 Sex Female Gender identity Woman History of Procedures Procedures Service Procedure code Service date Servicing provider Phone# Pain Assessment - NO pain present (1126F) 1126F 2022-05-01 No Data Available No Data A vailable Medication List Documented (1159F) 1159F 2022-05-01 No Data Available No Data Alessandra ilable Medication Review by prescribing provider or pharmacist documented (1160F) 1160F 2022-05-01 No Data Available No Data Alessandra ilable Functional Status Assessed (1170F) 1170F 2022-05-01 No Data Available No Data Avail able Advance Care Directive Advance care planning discussion documented in the medical record (1158F) 1158F 2022-05-01 No Data Available No Data Availa ble BMI obtained (3008F) 3008F 2022-05-01 No Data Availab le No Data Available New patient,40-59min; chronic exacerbation, 2 stable chronic or 1 acute illness add add modifier 95 for video (do not use for phone, instead use 11649-14) 02994 2022-05-01 No Data Available No Data Availa ble SBP 130-139 (3075F) 3075F 2022-05-01 No Data Availabl e No Data Available DBP 80-89 (3079F) 3079F 2022-05-01 No Data Available No Data Available Estab. patient 30-39min; chronic exacerbation, 2 stable chronic or 1 acute illness add add modifier 95 for video, (do not use for phone, instead use 77782-48) 21245 2023-02-14 No Data Available No Data Availa ble Medication List Documented (1159F) 1159F 2023-02-14 No Data Available No Data Alessandra ilable Medication Review by prescribing provider or pharmacist documented (1160F) 1160F 2023-02-14 No Data Available No Data Alessandra ilable Functional Status Assessed (1170F) 1170F 2023-02-14 No Data Available No Data Avail able Pain Assessment - NO pain present (1126F) 1126F 2023-02-14 No Data Available No Data A vailable Advance Care Directive Advance care planning discussion documented in the medical record (1158F) 1158F 2023-02-14 No Data Available No Data Availa ble BMI obtained (3008F) 3008F 2023-02-14 No Data Availab le No Data Available SBP >= 140 3077F 2023-02-14 No Data Available No Data Available DBP 80-89 (3079F) 3079F 2023-02-14 No Data Available No Data Available Advance care planning discussed and documented ? advance care plan or surrogate decision-maker was documented in the medical record. (1123F) 1123F 2023-02-14 No Data Available No Data Availa ble Estab. patient 30-39min; chronic exacerbation, 2 stable chronic or 1 acute illness add add modifier 95 for video, (do not use for phone, instead use 88783-67) 89809 2023-09-30 No Data Available No Data Availa ble Medication List Documented (1159F) 1159F 2023-09-30 No Data Available No Data Alessandra ilable Medication Review by prescribing provider or pharmacist documented (1160F) 1160F 2023-09-30 No Data Available No Data Alessandra ilable Pain Assessment - Pain Documented on a Pain Scale (1125F) 1125F 2023-09-30 No Data Available No Data Alessandra ilable BMI obtained (3008F) 3008F 2023-09-30 No Data Availab le No Data Available Advance Care Directive Advance care planning discussion documented in the medical record (1158F) 1158F 2023-09-30 No Data Available No Data Availa ble Advance care planning discussed and documented ? advance care plan or surrogate decision-maker was documented in the medical record. (1123F) 1123F 2023-09-30 No Data Available No Data Availa ble SBP >= 140 3077F 2023-09-30 No Data Available No Data Available DBP 80-89 (3079F) 3079F 2023-09-30 No Data Available No Data Available Functional Status Assessed (1170F) 1170F 2023-09-30 No Data Available No Data Avail able No Data Available 65801 2023-12-04 No Data Available No Data Available Advance care planning discussed and documented in the medical record ? beneficiary/patient did not wish to or was unable to provide an advance care plan or name a surrogate decision-maker. (1124F) 1124F 2023-12-04 No Data Available No Data Availa ble RN, CN or CP time with patient by phone; use with 1111F, BP, A1c or other CPTII codes 13801 2023-12-02 No Data Available No Data Avai lable Medications prescribed in hospital were reviewed and reconciled against what they were taking prior to admission during today's visit. (1111F) 1111F 2023-12-02 No Data Available No Data Availa ble Unlisted special service; to be used for medical record reviews and reporting CPTII codes (1111F, etc) 20894 2024-04-27 No Data Available No Data Availa ble SBP >= 140 3077F 2024-04-27 No Data Available No Data Available DBP >=90 3080F 2024-04-27 No Data Available No Data Available Estab. patient 30-39min; chronic exacerbation, 2 stable chronic or 1 acute illness add add modifier 95 for video, (do not use for phone, instead use 39110-00) 25692 2024-07-14 No Data Available No Data Availa ble Medication Review by prescribing provider or pharmacist documented (1160F) 1160F 2024-07-14 No Data Available No Data Alessandra ilable SBP >= 140 3077F 2024-07-14 No Data Available No Data Available DBP <80 (3078F) 3078F 2024-07-14 No Data Available No Data Available Advance Care Directive Advance care planning discussion documented in the medical record (1158F) 1158F 2024-07-14 No Data Available No Data Availa ble Advance care planning discussed and documented ? advance care plan or surrogate decision-maker was documented in the medical record. (1123F) 1123F 2024-07-14 No Data Available No Data Availa ble Medication List Documented (1159F) 1159F 2024-07-14 No Data Available No Data Alessandra ilable Functional Status Assessed (1170F) 1170F 2024-07-14 No Data Available No Data Avail able Pain Assessment - Pain Documented on a Pain Scale (1125F) 1125F 2024-07-14 No Data Available No Data Alessandra ilable Functional Status Functional Category Effective Dates Cognition Status: Diminished ADL: Bathing Needs Assistance , Dressing Needs Assistance , Eating Independent , Ambulation Needs Assistance , Transferring Needs Assistance and Toileting Needs AssistanceIADL: Medication Needs Assistance , Meal Prep Needs Assistance , Shopping Needs Assistance , Driving or Public Transport Needs Assistance , Housework Needs Assistance and Finances Needs AssistanceFalls in last 6 Months: NoSocial Supports - # of Interactions with Friends/Family in a typical week: daily 2022-05-01 Activities of Daily Livin2023-02-14 Dressing: Needs Assistance 2023-02-14 Bathing: Needs Assistance 2023-02-14 Eating: Independent 2023-02-14 Ambulation/Walking: Needs Assistance, us es cane and walker. 2024-07-14 Mental Status Status Date AOx 3, short term memory occ issue per f amily 2024-07-14 Assessments Date of Service Assessments 2022-05-01 13:32:51 Unspecified dementia , unspecified severity, without behavioral disturbance, psychotic disturbance, mood disturbance, and anxietyOn donepezil, memory stable per granddaughter. Monitor by PCP.HTN (hypertension)Amlodipine, stable BP at home.OsteoporosisOn Alendronate weekly past 3-4 yrs, monitor by PCP. Denies issue. 2023-02-14 12:27:35 Mild dementia withou t behavioral disturbance, psychotic disturbance, mood disturbance, or anxietyHTN (hypertension)OsteoporosisOsteoarthritis 2023-09-30 07:39:39 Dementia without beh avioral disturbanceHTN (hypertension)OsteoporosisOsteoarthritisOther problems related to medical facilities and other health care 2023-12-04 06:45:14 Urinary tract infect ionOther problems related to medical facilities and other health care 2024-07-14 13:25:27 Other problems relat ed to medical facilities and other health careDementia without behavioral disturbanceHTN (hypertension)OsteoporosisOsteoarthritisDental SurgeryBilateral knee pain Plan of Care Date of Service Plans 2022-05-01 13:32:51 Pain Assessment - NO pain documented (1126F)Medication Review by prescribing provider or pharmacist documented (1160F)Medication List Documented (1159F)Functional Status Assessed (1170F)Advance Care Directive Advance care planning discussion documented in the medical record (1158F)BMI obtained (3008F)SBP 130-139 (3075F)Televideo new patient,40-59min; chronic exacerbation, 2 stable chronic or 1 acute illness add modifier 95DBP 80-89 (3079F)Continue to see PCP. Follow-up with [facility] as needed for any acute or disease education needs that may arise. 2023-02-14 12:27:35 Medication Review by prescribing provider or pharmacist documented (1160F)Medication List Documented (1159F)Functional Status Assessed (1170F)Advance Care Directive Advance care planning discussion documented in the medical record (1158F)BMI obtained (3008F)SBP >= 140DBP <80 (3078F)Televideo 30-39min; chronic exacerbation, 2 stable chronic or 1 acute illness add modifier 95Advance care planning discussed and documented ? advance care plan or surrogate decision-maker was documented in the medical record. (1123F)Pain Assessment - NO pain documented (1126F)Continue to see PCP. Follow-up with [facility] as needed for any acute or disease education needs that may arise.On donepezil, memory stable per granddaughter. Monitor by PCP. [facility] Update 02/14/23:Follows up with PCP every 3 months.Taking:Donepezil 5 mg Tab QDDoing well on current treatment.Denies any acute complaint.Continue treatment as prescribed, follow up as instructed.Contact CB 24/7 as needed.Amlodipine, stable BP at home. [facility] Update 02/14/23:Follows up with PCPLast BP obtained from outside records: 01/08/23 152/81 Last BP reported by patient: 148/80Taking:amLODIPine Besylate 2.5 mg Tab 1 Tab QDDoing well on current treatment.Denies any acute complaint.Continue treatment as prescribed, follow up as instructed.Monitor BP regularly.Follow a low Sodium diet. Contact CB 24/7 as needed.On Alendronate weekly past 3-4 yrs, monitor by PCP. Denies issue. [facility] Update 02/14/23:Follows up with PCP every 3 months.Denies any complaints or recent falls.Continues taking Alendronate weekly.Reports chronic left hip pain.Takes Tylenol as needed. Follows up with PCP every 3 months. 2023-09-30 07:39:39 Medication Review by prescribing provider or pharmacist documented (1160F)Medication List Documented (1159F)Functional Status Assessed (1170F)Advance Care Directive Advance care planning discussion documented in the medical record (1158F)BMI obtained (3008F)SBP >= 140DBP 80-89 (3079F)Televideo 30-39min; chronic exacerbation, 2 stable chronic or 1 acute illness add modifier 95Advance care planning discussed and documented ? advance care plan or surrogate decision-maker was documented in the medical record. (1123F)Pain Assessment - Pain Documented (1125F)Continue to see PCP. Follow-up with [facility] as needed for any acute or disease education needs that may arise.StableOn donepezil, memory stable per granddaughter. Monitor by PCP. Doing well on current treatment.Denies any acute complaint.Continue treatment as prescribed, follow up as instructed.Contact CB 24/7 as needed.StableAmlodipineDoing well on current treatment.Denies any acute complaint.Continue treatment as prescribed, follow up as instructed.Monitor BP regularly.Follow a low Sodium diet. Contact CB 24/7 as needed.StableAlendronate weekly past 3-4 yrs.Follows up with PCP every 3 months.Denies any complaints or recent falls.Continue f/u care with PCP.StableReports chronic left hip pain.Takes Tylenol as needed. Follows up with PCP every 3 months.CONTINGENCY PLANCondition: DementiaMember to call for the following symptoms: Confusion or change in behavior/ Increased agitation/ Trouble sleeping at nightPlanned intervention: Place order for urinalysis and culture; family to take sample to lab/ Ask about last bowel movement/ Assess for UTI symptoms; if present, start Bactrim DS BID x3 days/ Limit extra stimulation 2023-12-04 06:45:14 Phone (patient, pare nt, or guardian); 5-10 minutes of medical discussion (no modifier 95)Advance care planning discussed and documented in the medical record ? beneficiary/patient did not wish to or was unable to provide an advance care plan or name a surrogate decision-maker. (1124F)PCP visit is planned for:11/26-11/27 hospitalization for tx of a UTI. She denies any current symptoms or other concerns. Reinforced calling CB for urgent care needs.CONTINGENCY PLANCondition: DementiaMember to call for the following symptoms: Confusion or change in behavior/ Increased agitation/ Trouble sleeping at nightPlanned intervention: Place order for urinalysis and culture; family to take sample to lab/ Ask about last bowel movement/ Assess for UTI symptoms; if present, start Bactrim DS BID x3 days/ Limit extra stimulation 2023-12-02 13:11:41 12/04/23 2024-07-14 13:25:27 Televideo 30-39min; chronic exacerbation, 2 stable chronic or 1 acute illness add modifier 95Functional Status Assessed (1170F)Advance Care Directive Advance care planning discussion documented in the medical record (1158F)Advance care planning discussed and documented ? advance care plan or surrogate decision-maker was documented in the medical record. (1123F)SBP >= 140DBP <80 (3078F)Pain Assessment - Pain Documented (1125F)Continue to see PCP. Follow-up with [facility] as needed for any acute or disease education needs that may arise.CONTINGENCY PLANCondition: DementiaMember to call for the following symptoms: Confusion or change in behavior/ Increased agitation/ Trouble sleeping at nightPlanned intervention: Place order for urinalysis and culture; family to take sample to lab/ Ask about last bowel movement/ Assess for UTI symptoms; if present, start Bactrim DS BID x3 days/ Limit extra stimulationStableOn donepezilMonitor by PCP. Doing well on current treatment.Denies any acute complaint.Continue treatment as prescribed, follow up as instructed.Contact CB 24/7 as needed.StableAmlodipine, HCTZDoing well on current treatment.Denies any acute HTN s/sx, denies blurry vision, KELLY, palpitations, dizziness. Patient encouraged to assess BP again in 30-60 min and monitor for any associated symptoms. Patient encouraged to call CB if developing urgent HTN s/sx if BP is >180/100.Continue treatment as prescribed, follow up as instructed.Monitor BP regularly.Follow a low Sodium diet. Contact CB 24/7 as needed.StableAlendronate weekly past 3-4 yrs.Follows up with PCP every 3 months.Denies any complaints or recent falls.Continue f/u care with PCP.StableReports chronic left hip pain.Takes Tylenol as needed. Follows up with PCP every 3 months.Ykgreg2207/14/2024 - Patient recently had dental surgery and endorses oral pain. She is taking tylenol for pain management. Patient encouraged to monitor for s/sx of dental infection and continue f/u care and monitoring with PCP and dentist.StableTylenolEncouraged ROM exercises, continue using tylenol, and f/u with PCP. Goals Date Goal 2023-02-14 Remember to keep all appointments with your PCP and specialists. Call CB 24/7 if you have questions or concerns. Discussed how to contact [facility] via phone or tablet. 24/7 phone number provided. 2023-09-30 Remember to implemen t a low salt diet and exercise daily as tolerable. 2023-09-30 Contact us if dandre oliveros acute change in mental status, hypertensive episode, fall, or pain occurs. 2023-09-30 Continue taking medi cations as prescribed and f/u care and monitoring with PCP every 3-6 months. 2024-07-14 Remember to adhere t o dietary interventions and exercise as tolerable. 2024-07-14 Contact us if develo ping acute HTN s/sx, worsening pain, acute change in mental status, or health-related concerns. 2024-07-14 Continue taking medi cations as prescribed and f/u care and monitoring with PCP every 3-6 months. Health Concerns Date Concern 2024-07-14 Visit completed shireen whitehead audio/video.Patient/Guardian agreed to visit via telehealth. Today, patient has chief complaint of: follow up care and comprehensive review.Reviewed Allergies, Medications, Active Medical conditions, past medical/surgical history, Social history. 2024-07-14 ACP: yes. HCP: Hafsa Paige. Limited intervention - declines intubation. 2024-07-14 Most recent hospital stay(s) or ER visit(s) and precipitating factors: denies in the last month. 2024-07-14 Informed verbal cons ent was obtained from this patient to communicate and provide care using virtual and other telecommunications tools. This patient has been explained the risks, if any, related to the encounter. I explained that care provided through video or audio communication cannot replace the need for physical examination or an in-person visit for some disorders or urgent problems.
--- OUTSIDE RECORDS SUMMARY | 2024-10-19 09:07 | XMS_ITS | Clinical Summary ---
Author Organization [employer] Address [address] [place] [address] [address] [place] [address] Care Team Providers Care Tomographic Tech Name Role Phone Cary Shah MD Primary Care Provide r Allergies Active Allergy Reactions Criticality Noted Date Comments Aspirin Rash Low 04/13/2012 Medications Diclofenac Sodium 1 % gelIndications:Chr onic right-sided low back pain with right-sided sciatica APPLY 1 INCH TOPICALLY IF NEEDED IN THE MORNING AND AT BEDTIME ( NEEDED NO MORE THAN 2 TIMES DAILY). 100 g 09/17/19 24 Active hydroCHLOROthiazid e 12.5 MG tabletIndications: Essential hypertension Take 1 tablet (12.5 mg) by mouth Once per day. 30 tablet 11 09/17/19 25 026 Active amLODIPine (Norvasc) 2.5 MG tabletIndications: Essential hypertension TAKE 1 TABLET BY MOUTH EVERY DAY 90 tablet 2 09/17/19 25 Active donepezil (Aricept) 5 MG tabletIndications: Dementia without behavioral disturbance, psychotic disturbance, mood disturbance, or anxiety, unspecified dementia severity, unspecified dementia type (CMS/HCC) TAKE 1 TABLET BY MOUTH AT BEDTIME 30 tablet 5 09/17/19 25 Active alendronate (Fosamax) 70 MG tabletIndications: Osteoporosis, unspecified osteoporosis type, unspecified pathological fracture presence take 1 tablet by oral route every week in the morning, at least 30 min before first food, beverage, or medication of day 12 tablet 1 09/17/19 25 Active cholecalciferol VITAMIN D (Vitamin D-3) 50 MCG (1999 UT) capsuleIndications :Mild dementia without behavioral disturbance, psychotic disturbance, mood disturbance, or anxiety, unspecified dementia type (CMS/HCC) Take 1 capsule (50 mcg) by mouth Once per day. 90 capsule 1 09/17/19 25 Active fluticasone (Flonase) 50 MCG/ACT nasal sprayIndications:A llergic rhinitis, unspecified seasonality, unspecified trigger SPRAY 2 SPRAYS INTO EACH NOSTRIL TOMOLINA JIMÉNEZ 48 mL 1 09/17/19 25 Active clotrimazole (Lotrimin) 1 % creamIndications:I ntertrigo Apply topically 2 times daily for 28 days. 30 g 2 09/17/19 25 025 acetaminophen (Tylenol Extra Strength) 500 MG tabletIndications: Degeneration of intervertebral disc of lumbosacral region with discogenic back pain and lower extremity pain Take 2 tablets (1,000 mg) by mouth every 8 (eight) hours if needed for mild pain for up to 20 days. 40 tablet 2 09/17/19 25 025 Active Problems Problem Noted Date Diagnosed Date Hearing loss of left ear 09/16/2024 Intertrigo 11/13/2023 Lower extremity edema 11/13/2023 Dyspnea on exertion 11/13/2023 DNR (do not resuscitate) discussion 01/08/2023 Assessment & Plan (01/08/2023 12:38 PM EDT): Patient wishes to be DNR/DNI extensive discussion and explanation done documentation done Chronic low back pain 10/03/2022 Essential hypertension 10/03/2022 Assessment & Plan (09/16/2024 2:15 PM EDT): Advised to reinitiate her blood pressure medication as soon as possible refills are done today I advised low-sodium diet and weight reduction I advised to check her blood pressure at home and bring log for next appointment Assessment & Plan (11/13/2023 11:06 AM EDT): Today blood pressure is very high, she did not took her medication today, she is clinically asymptomatic I advise low Na diet and weight reduction Take blood pressure medication as soon as possible C/w amlodipine I added today hydrochlorothiazide RTC 2 weeks with BP log for nurse visit, if BP not at goal I will increase hydrochlorothiazide dose Assessment & Plan (01/08/2023 12:36 PM EDT): Patient forgot to take her blood pressure medication today. I advise low Na diet and do not miss medication doses Assessment & Plan (10/08/2022 1:09 PM EDT): Maintenance: BMP: ordered today Lipid Panel: ordered today ASCVD Risk: Calculate pending updated labs EKG: Obtain baseline at f/u - Aerobic exercise to reduce BP. Initial goal of 30 min walk 3-5x/week. Increase as tolerated. - low-sodium diet (goal: <2g/day) and heart healthy diet such as DASH to reduce BP and prevent ASCVD. - Home BP monitoring 1-2 x day with goal of <140/90. - Seek immediate medical attention for chest pain, palpitations, SOB, syncope, or sudden changes in mental status. 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 She stated that she is requesting a letter listing her medical conditions, and asks for her son could be allowed to live with her. ) 09/16/2024 1:15 PM EDT Office Visit [facility] [address] [place] [address] Cary Shah MD Essential hypertension (Primary Dx); Dementia without behavioral disturbance, psychotic disturbance, mood disturbance, or anxiety, unspecified dementia severity, unspecified dementia type (CMS/HCC); Osteoporosis, unspecified osteoporosis type, unspecified pathological fracture presence; Mild dementia without behavioral disturbance, psychotic disturbance, mood disturbance, or anxiety, unspecified dementia type (CMS/HCC); Allergic rhinitis, unspecified seasonality, unspecified trigger; Intertrigo; Degeneration of intervertebral disc of lumbosacral region with discogenic back pain and lower extremity pain; Hearing loss of left ear, unspecified hearing loss type 09/16/2024 Travel 09/09/2024 Patient Outreach [facility] [address] [place] [address] Cary Shah MD Pre-visit Planning ((Unable to reach for PVP screening and or LVM)) from Last 3 Months Immunizations Name Administration Dates Next Due Influenza High-dose Quadriva lent Preservative Free 05/03/2022,04/19/2020 Influenza injectable quadriv alent IIV4 with preservative 06/02/2017 Influenza injectable quadriv alent preservative free 07/25/2021,04/12/2019,07/14/2018 Influenza, IIV3, injectable 04/04/2014 Influenza, Split (incl. luis fied surface antigen) 04/22/2013,04/13/2012 Pneumococcal Conjugate PCV 13 09/12/2016 Pneumococcal Polysaccharide PPSV23 03/23/2009 TD (adult), 2 Lf tetanus tox oid, preservative free, adsorbed 04/13/2012 Zoster, live 03/27/2015 Social History Tobacco Use Types Packs/Day Years Used Date Smoking Tobacco: Never Passive Smoke Exposure: Never Smokeless Tobacco: Never Tobacco Cessation:Counseling Given: Not Answered Alcohol Use Standard Drinks/Week Comments Never 0 (1 standard drink = 0.6 oz pur e alcohol) Depression Answer Date Recorded Patient Health Questionnaire-9 Score 0 09/16/2024 Patient Health Questionnaire-9 Score 0 09/16/2024 Last PHQ-9: Questionnaire Data Not on file 0 09/16/2024 Housing Stability Answer Date Recorded What is your housing situation today? I have cornelia felipe 09/16/[address] you li ve. Do you have problems with any of the following? None of the above 09/16/2024 Food Insecurity Answer Date Recorded Within the past 12 months, y ou worried that your food would run out before you got money to buy more: Never True 09/16/2024 Within the past 12 months,th e food you bought just didn't last and you didn't have enough money to get more: Never True Transportation Answer Date Recorded In the past 12 months, has l ack of transportation kept you from medical appts, meetings, work or from getting things needed for daily living? No 09/16/2024 Utilities Answer Date Recorded In the past 12 months, has t he electric, gas, oil or water company threatened to shut off services in your home? No 09/16/2024 Depression Answer Date Recorded Patient Health Questionnaire-2 Score 0 09/16/2024 Internet Access Answer Date Recorded Internet Access Q1 No 09/16/2024 Internet Access Q2 I do not want or need it 09/04 Comments Unknown Sex and Gender Information Value Date Recorded Sex Assigned at Female 05/06/2022 10:14 AM EDT Legal Sex Female 10:14 AM EDT Gender Identity Female 05/06/2022 10:14 AM EDT Sexual Orientation Straight 05/06/2022 10 :14 AM EDT Last Filed Vital Signs Vital Sign Reading Time Taken Comments Blood Pressure 163/84 09/16/2024 1:37 PM EDT Pulse 105 09/16/2024 1:03 PM EDT Temperature 35.6 ??C (96 ??F) 09/16/2024 1:03 PM EDT Respiratory Rate 17 09/16/2024 1:03 PM EDT Oxygen Saturation 98% 01/08/2023 11: 38 AM EDT Inhaled Oxygen Concentration - - Weight 76.1 kg (167 lb 12.8 oz) 09/16/2024 1:03 PM EDT Height 147.3 cm (4' 10 ) 09/16/2024 1:03 PM EDT Body Mass Index 35.07 09/16/2024 1:03 PM EDT Plan of Treatment Upcoming Encounters Date Type Department Care Team ([facility] st Contact Info) Description 12/15/2024 10:15 AM EDT Office Visit [facility] [address] [place] [address] Cary Shah MD [address] [place] [address] Health Maintenance Due Date Last Done Comments Alcohol/Substance Use Screening 1957 Hepatitis C Screening 1963 DTaP/Tdap/Td Vaccines (1 - Tdap) 04/14/2012 04/13/2012 Zoster Vaccines (2 of 3) 05/22/2015 03/27/2015 Pneumococcal Vaccine: 50+ Years (3 of 3 - PCV20 or PCV21) 09/12/2021 09/12/2016, 03/23/2009 RSV Patients and Patients Aged 60 years or older (1 - 1-dose 75+ series) 2022 COVID-19 Vaccine ( season) 2024 05/03/2022, 07/25/2021, 09/27/2020, Additional history exists Influenza Vaccine (#1) 2024 , 07/25/2021, 04/19/2020, Additional history exists Depression Screening 09/16/2025 09/16/2024, 09/17/19 25 SDOH Screening 09/16/2025 09/16/2024 Tobacco Screening 09/16/2025 09/16/2024 Lipid Panel 08/13/2026 08/13/2021, 04/20/2020 HIB Vaccines Aged Out No longer eligi ble based on patient's age to complete this topic HPV Vaccines Aged Out No longer eligi ble based on patient's age to complete this topic Hepatitis A Vaccines Aged Out No long er eligible based on patient's age to complete this topic Hepatitis B Vaccines Aged Out No long er eligible based on patient's age to complete this topic IPV Vaccines Aged Out No longer eligi ble based on patient's age to complete this topic Meningococcal Vaccine Aged Out No amadou lata eligible based on patient's age to complete this topic RSV under 20 months Aged Out No longe r eligible based on patient's age to complete this topic Rotavirus Vaccines Aged Out No longer eligible based on patient's age to complete this topic Procedures Procedure Name Priority Date/Time Associated Diagnosis Comments LIPID PANEL, STANDARD Routine 08/13/2021 8:09 AM EST from Last 3 Months or Most Recently Relevant to Health Maintenance Results * (ABNORMAL) LIPID PANEL, STANDARD (08/13/2021 8:09 AM EST) Chol/HDLC Ratio 4.0 <5.0 (calc) [facility] Cholesterol, Total 209(H) <200 mg/dL [facility] HDL Cholesterol 52 > OR = 50 mg/dL [facility] LDL Cholesterol 135(H) mg/dL (calc) [facility] Comment: Reference range: <100 ?? Desirable range <100 mg/dL for primary prevention; ?? <70 mg/dL for patients with CHD or diabetic patients ?? with > or = 2 CHD risk factors. ?? LDL-C is now calculated using the Rolanda ?? calculation, which is a validated novel method providing ?? better accuracy than the Friedewald equation in the ?? estimation of LDL-C. ?? Ar DAVIS et al. KELLY. 2013;310(19): 4327-5513 ?? (http://education.[employer].com/faq/GVZ369) Non-HDL Cholesterol 157(H) <130 mg/dL (calc) [facility] Comment: For patients with diabetes plus 1 major ASCVD risk ?? factor, treating to a non-HDL-C goal of <100 mg/dL ?? (LDL-C of <70 mg/dL) is considered a therapeutic ?? option. Triglycerides 110 <150 mg/dL [facility] 08/13/2021 8:09 AM EST us Cary Adame MD LAB BLOOD ORDERABLES Final Result [facility] [address] from Last 3 Months or Most Recently Relevant to Health Maintenance Insurance [facility] [employer]PLE[employer] Care Teams Tomographic Tech Relationship Specialty Start Date End Date Cary Shah MD [address] [place] [address] PCP - General Family Medicine 08/04/20
== END 2024-10-19 08:43 | disposition home or self-care (01) ==
LOC: HO.SH 08:42
PROVIDERS: Visit Provider Internal Medicine
DX: Z01.118 Encounter for examination of ears and hearing with other abnormal findings (principal); H90.3 Sensorineural hearing loss, bilateral
CPT/HCPCS: 92557; 92567